=== PATIENT | male | born 1955 | race Caucasian/White ===

== ENCOUNTER 2020-01-05 13:12 | Emergency (ER) | payer BC, OTHER ==
[~2020-01-05] VITALS: Ht 182 cm; Wt 90.7 kg
[2020-01-05] MEDS ORDERED: LABETALOL HCL 20 MG/4 ML VIAL IV STA (13:24)
[2020-01-05 13:31] LABS: BASOPHILS % (AUTO) 0 % (0-10); EOSINOPHILS # (AUTO) 0.1 10^3/uL (0.0-0.3); EOSINOPHILS % (AUTO) 2 % (0-10); HEMATOCRIT 47 % (40-54); HEMOGLOBIN 15.4 G/DL (13.3-17.7); LYMPHOCYTES # (AUTO) 1.9 X 10^3 (1.0-4.0); LYMPHOCYTES % (AUTO) 23 % (12-44); MEAN CORPUSCULAR HEMOGLOBIN 28 PG (25-34); MEAN CORPUSCULAR HGB CONC 33 G/DL (32-36); MEAN CORPUSCULAR VOLUME 83 FL (80-99); MEAN PLATELET VOLUME 10.4 FL (7.4-10.4); MONOCYTES # (AUTO) 0.5 X 10^3 (0.0-1.0); MONOCYTES % (AUTO) 6 % (0-12); NEUTROPHILS # (AUTO) 5.6 X 10^3 (1.8-7.8); NEUTROPHILS % (AUTO) 69 % (42-75); PLATELET COUNT 200 10^3/uL (130-400); RED CELL DISTRIBUTION WIDTH 13.4 % (10.0-14.5); WHITE BLOOD COUNT 8.1 10^3/uL (4.3-11.0)
--- NOTE | 2020-01-05 13:39 | Diagnostic Imaging Report ---
PATIENT HISTORY: Altered mental status. TECHNIQUE: Single frontal view of the chest. COMPARISON: None FINDINGS: The lung volumes are normal. There is mild elevation of the left hemidiaphragm. No focal consolidation is seen. No large pleural effusion or pneumothorax is seen. The cardiomediastinal silhouette is normal in size and contour. No acute osseous abnormality is seen. IMPRESSION: No acute pulmonary abnormality seen. Dictated by: Dictated on workstation # [id number]
--- NOTE | 2020-01-05 13:45 | Diagnostic Imaging Report ---
CLINICAL INDICATION: Patient with altered mental status, memory loss, couldn't remember his name or who he was. Patient has history of right eye and right side of brain injury and surgery due to homemade massey going off in right eye. EXAM: Axial CT scan of the brain without IV contrast with coronal and sagittal reformatted images. Auto Exposure Controls were utilized during the CT exam to meet ALARA standards for radiation dose reduction. COMPARISON: None. FINDINGS: There is no gross evidence of intracranial hemorrhage, acute cerebral infarct, brain herniation, or midline shift. There is a moderate sized area of chronic encephalomalacia involving the right temporal lobe, right subinsular region, posterior right frontal lobe, right parietal lobe, and right frontal region which may be from post traumatic changes and/or infarcts. There are other small patchy areas of low-attenuation white matter changes involving the right cerebellum and right cerebral hemispheres, most likely related to chronic ischemic changes. There is no brain herniation or midline shift. There is no hydrocephalus. Asymmetry of extra-axial CSF in the left posterior fossa compared to the right, likely a chronic finding. A small arachnoid cyst may be considered. Basal cisterns are otherwise unremarkable. The extracranial soft tissues, skull, and orbits show no acute finding. Right lateral skull craniotomy changes are seen with a prosthetic skull flap seen. Prosthesis of the right globe is noted. There are bony reconstructive changes involving the right orbit. The paranasal sinuses and mastoid air cells are clear. IMPRESSION: 1. There is no definite CT evidence of interval acute cerebral infarction, intracranial hemorrhage, or mass seen. 2. There is a moderate amount of right cerebral hemisphere encephalomalacia, as described above. This may be related to post traumatic changes and/or chronic infarcts. 3. There are postop changes and deformity of the right orbit and right skull craniotomy with a prosthetic flap in place. 4. The results of this report were discussed with Dr. Jules Bhat via the telephone on 01/05/2020 at 1340 hours. Dictated by: Dictated on workstation # [id number]
[2020-01-05] MEDS ORDERED: NS IV 500 ML 500 ML IV ONE (13:46)
[2020-01-05 13:47] LABS: ALBUMIN 4.5 GM/DL (3.2-4.5); CHLORIDE 104 MMOL/L (98-107); POTASSIUM 3.8 MMOL/L (3.6-5.0); SODIUM 139 MMOL/L (135-145)
[2020-01-05 13:48] LABS: CALCIUM 9.1 MG/DL (8.5-10.1)
[2020-01-05 13:49] LABS: GLUCOSE 117 MG/DL (70-105)
[2020-01-05 13:50] LABS: TOTAL PROTEIN 8.2 GM/DL (6.4-8.2)
[2020-01-05 13:51] LABS: BILIRUBIN,TOTAL 0.4 MG/DL (0.1-1.0); CARBON DIOXIDE 24 MMOL/L (21-32)
[2020-01-05 13:52] LABS: FIBRIN DEGRADATION PRODUCTS 0.45 UG/ML (0.00-0.49); INR 0.9 (0.8-1.4); PROTHROMBIN TIME PATIENT 12.6 SEC (12.2-14.7)
[2020-01-05 13:53] LABS: ALKALINE PHOSPHATASE 104 U/L (40-136); CREATININE SERUM 1.01 MG/DL (0.60-1.30); GFR ESTIMATED > 60
--- NOTE | 2020-01-05 13:53 | ED Neurological Problem ---
General Chief Complaint: Neuro-Stroke Like Symptoms Stated Complaint: MEMORY LOSS,AMS Nursing Triage Note: ARRIVED VIA AMB TO ROOM 02. FAMILY IN WAITING ROOM STATES APPX 30 MINS TESTER REGULATOR PT SUDDENLY DID NOT KNOW HIS NAME OR WHERE HE IS AT. PT A/0X2 AT THIS TIME ET NOT KNOWING THE DATE. PT STATES HE STILL DOES NOT FEEL RIGHT IN HIS HEAD AND IS HAVING RIGHT ARM NUMBESS. Nursing Sepsis Screen: No Definite Risk Source: patient Exam Limitations: no limitations History of Present Illness Date Seen by Provider: January 05, 2020 Time Seen by Provider: 13:15 Initial Comments Here with report of feeling spacey. Also reported some right arm numbness. Started approximately 45 minutes ago. States he was at work and was on his lunch break when he started feeling this way. He drove home and his brought him here. 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 He takes Tegretol daily but has not had that in 2 days because he forgot. He has not had a seizure in many years. Denies hypertension but was noted to be hypertensive at 200 systolic. He feels like he can move everything and has sensation everywhere now but still feels a little spacey. Denies nausea, vomiting, chest pain or breathing problems. Does smoke daily and uses marijuana every other day. Timing/Duration: 1 hour Severity: moderate Associated Symptoms: confusion; No muscle spasms, No nausea/vomiting; paresthesia; No slurred speech, No trouble walking, No weakness Allergies and Home Medications Allergies Coded Allergies: Penicillins (Verified Allergy, Unknown, 01/05/20) Patient Home Medication List Home Medication List Reviewed: Yes Review of Systems Review of Systems Constitutional: see HPI; No chills, No fever Eyes: See HPI, Blindness (chronic); Denies Pain Ears, Nose, Mouth, Throat: no symptoms reported Respiratory: No cough, No short of breath Cardiovascular: see HPI; No chest pain, No edema Gastrointestinal: No abdominal pain, No nausea, No vomiting Genitourinary: no symptoms reported Musculoskeletal: no symptoms reported Skin: no symptoms reported Psychiatric/Neurological: See HPI All Other Systems Reviewed Negative Unless Noted: Yes Past Byyeqop-Imkgdb-Lvtiyy Hx Past Med/Social Hx: Reviewed Nursing Past Med/Soc Hx Patient Social History Alcohol Use: Denies Use Recreational Drug Use: Yes Drug of Choice: POT Smoking Status: Current Everyday Smoker Recent Foreign Travel: No Contact w/Someone Who Travel: No Recent Infectious Disease Expo: No Recent Hopitalizations: No Seasonal Allergies Seasonal Allergies: No Past Medical History Surgeries: Yes (EYE, cranial surgery) Respiratory: No Cardiac: Yes High Cholesterol, Hypertension Neurological: Yes Seizure Disorder Genitourinary: No Gastrointestinal: No Musculoskeletal: No Endocrine: No HEENT: Yes Eye Injury Loss of Vision: Right Cancer: No Psychosocial: No Family Medical History Reviewed Nursing Family Hx No Pertinent Family Hx Physical Exam Vital Signs Vital Signs - First Documented 01/05/20 13:12 Temp 37.0 Pulse 94 Resp 16 B/P (MAP) 206/106 (139) Pulse Ox 100 O2 Delivery Room Air Capillary Refill : Less Than 3 Seconds Height, Weight, BMI Height: '" Weight: lbs. oz. kg; 27.00 BMI Method: General Appearance: WD/WN, no apparent distress HEENT: pharynx normal, other (left side reactive. Right side is glass eye. Normal pharynx) Neck: non-tender, full range of motion, supple, normal inspection Respiratory: lungs clear, normal breath sounds Cardiovascular: regular rate, rhythm, no murmur Peripheral Pulses: 2+ Dorsalis Pedis (R), 2+ Left Dors-Pedis (L), 2+ Radial Pulses (R), 2+ Radial Pulses (L) Gastrointestinal: non tender, soft Back: normal inspection, no CVA tenderness, no vertebral tenderness Extremities: non-tender, normal inspection Neurologic/Psychiatric: alert, oriented x 3 Crainal Nerves: normal hearing, normal speech Coordination/Gait: normal finger to nose Motor/Sensory: no motor deficit, no sensory deficit, no pronator drift Skin: normal color, warm/dry Stroke NIH Stroke Scale Assessment Level of Consciousness: 0=Alert (0), Level of Consciousness-Questions: 0=Answers both month/age (0), LOC Commands: 0=Performs both tasks (0), Visual Ragland: 0=No visual loss (0), Facial Movement (Facial Paresis): 0=Normal symmetrical mnt (0), Motor Function-Arms Right: 0=No drift (0), Motor Function-Arms Left: 0=No drift (0), Motor Function-Legs Right: 0=No drift (0), Motor Function-Legs Left: 0=No drift (0), Limb Ataxia: 0=Absent (0), Sensory: 0=Normal:no loss (0), Best Language: 0=No aphasia (0), Dysarthria: 0=Normal (0), Extinction & Inattention: 0=No abnormality (0), Total: Progress/Results/Core Measures Results/Orders Lab Results Laboratory Tests Test 01/05/20 13:18 01/05/20 13:20 01/05/20 14:55 Range/Units Glucometer 124 H 70-110 MG/DL White Blood Count 8.1 4.3-11.0 10^3/uL Red Blood Count 5.59 4.35-5.85 10^6/uL Hemoglobin 15.4 13.3-17.7 G/DL Hematocrit 47 40-54 % Mean Corpuscular Volume 83 80-99 FL Mean Corpuscular Hemoglobin 28 25-34 PG Mean Corpuscular Hemoglobin Concent 33 32-36 G/DL Red Cell Distribution Width 13.4 10.0-14.5 % Platelet Count 200 130-400 10^3/uL Mean Platelet Volume 10.4 7.4-10.4 FL Neutrophils (%) (Auto) 69 42-75 % Lymphocytes (%) (Auto) 23 12-44 % Monocytes (%) (Auto) 6 0-12 % Eosinophils (%) (Auto) 2 0-10 % Basophils (%) (Auto) 0 0-10 % Neutrophils # (Auto) 5.6 1.8-7.8 X 10^3 Lymphocytes # (Auto) 1.9 1.0-4.0 X 10^3 Monocytes # (Auto) 0.5 0.0-1.0 X 10^3 Eosinophils # (Auto) 0.1 0.0-0.3 10^3/uL Basophils # (Auto) 0.0 0.0-0.1 10^3/uL Prothrombin Time 12.6 12.2-14.7 SEC INR Comment 0.9 0.8-1.4 Activated Partial Thromboplast Time 31 24-35 SEC D-Dimer 0.45 0.00-0.49 UG/ML Sodium Level 139 135-145 MMOL/L Potassium Level 3.8 3.6-5.0 MMOL/L Chloride Level 104 98-107 MMOL/L Carbon Dioxide Level 24 21-32 MMOL/L Anion Gap 11 5-14 MMOL/L Blood Urea Nitrogen 14 7-18 MG/DL Creatinine 1.01 0.60-1.30 MG/DL Estimat Glomerular Filtration Rate > 60 BUN/Creatinine Ratio 14 Glucose Level 117 H 70-105 MG/DL Calcium Level 9.1 8.5-10.1 MG/DL Corrected Calcium 8.7 8.5-10.1 MG/DL Total Bilirubin 0.4 0.1-1.0 MG/DL Aspartate Amino Transf (AST/SGOT) 19 5-34 U/L Alanine Aminotransferase (ALT/SGPT) 20 0-55 U/L Alkaline Phosphatase 104 40-136 U/L Troponin I < 0.028 <0.028 NG/ML Total Protein 8.2 6.4-8.2 GM/DL Albumin 4.5 3.2-4.5 GM/DL Urine Color YELLOW Urine Clarity CLEAR Urine pH 5.5 5-9 Urine Specific [place] >=1.030 1.016-1.022 Urine Protein NEGATIVE NEGATIVE Urine Glucose (UA) NEGATIVE NEGATIVE Urine Ketones NEGATIVE NEGATIVE Urine Nitrite NEGATIVE NEGATIVE Urine Bilirubin NEGATIVE NEGATIVE Urine Urobilinogen 0.2 < = 1.0 MG/DL Urine Leukocyte Esterase NEGATIVE NEGATIVE Urine RBC (Auto) NEGATIVE NEGATIVE Urine RBC NONE /HPF Urine WBC RARE /HPF Urine Squamous Epithelial Cells RARE /HPF Urine Crystals NONE /LPF Urine Bacteria TRACE /HPF Urine Casts PRESENT /LPF Urine Hyaline Casts RARE /LPF Urine Mucus MODERATE H /LPF Urine Culture Indicated NO My Orders Orders - JULES LOPEZ MD Cbc With Automated Diff (01/05/20 13:24) Protime With Inr (01/05/20 13:24) Partial Thromboplastin Time (01/05/20 13:24) Comprehensive Metabolic Panel (01/05/20 13:24) Fibrin Degradation Products (01/05/20 13:24) Troponin I (01/05/20 13:24) Ua Culture If Indicated (01/05/20 13:24) Chest 1 View, Ap/Pa Only (01/05/20 13:24) Ekg Tracing (01/05/20 13:24) Nothing By Mouth (01/05/20 Dinner) Accucheck Stat ONCE (01/05/20 13:24) Ed Iv/Invasive Line Start (01/05/20 13:24) Vital Signs Stroke Patient Q15M (01/05/20 13:24) O2 (01/05/20 13:24) Intake & Output 06,14,22 (01/05/20 13:24) Labetalol Injection (Normodyne Injection (01/05/20 13:24) Monitor-Rhythm Ecg Trace Only (01/05/20 13:24) Dysphagia Screening Tool (01/05/20 13:24) Lipid Panel (01/06/20 06:00) Ns Iv 500 Ml (Sodium Chloride 0.9%) (01/05/20 13:46) Metoprolol Succinate (Xl) Tab (Toprol Xl (01/05/20 15:00) Medications Given in ED Current Medications Medications Dose Ordered Sig/[place]asper Route Start Time Stop Time Status Last Admin Dose Admin Sodium Chloride 500 ml @ 0 mls/hr Q0M ONCE IV 01/05/20 13:46 01/05/20 13:47 DC 01/05/20 13:59 500 MLS/HR Vital Signs/I&O 01/05/20 13:12 Temp 37.0 Pulse 94 Resp 16 B/P (MAP) 206/106 (139) Pulse Ox 100 O2 Delivery Room Air Blood Pressure Mean: 139 FSBG Bedside Testing Finger Stick Blood Glucose: 124 Progress Progress Note : Progress Note Seen and evaluated. Stroke protocol initiated. Blood pressure noted to be greater than 200 systolic. Labetalol 20 mg IV initiated. 1354: Blood pressure slightly improved. CT negative for acute stroke. Pending labs. Normal saline 500 mL bolus. Monitor patient. 1511: Toprol-XL 50 mg by mouth ordered. Overall doing better and patient was able to walk to the bathroom without difficulty. He states he feels better. I believe this incident was related to hypertension. He is not very good at taking his meds. I did talk with the and she states that she will help make sure that he takes them appropriately. We will initiate metoprolol 25 mg by mouth twice a day and have him follow-up with his doctor within one week. I discussed this with the who states that she will ensure that he gets in. He will continue his home medicines as prescribed. Discharged home with return precautions. Patient verbalize understanding of instructions and agreement with plan. Initial ECG Impression Date: January 05, 2020 Initial ECG Impression Time: 13:35 Initial ECG Rate: 90 Initial ECG Rhythm: Normal Sinus Comment Sinus rhythm with left atrial abnormality. Normal axis. No evidence of ST elevation [place]. No previous of available for comparison. Interpreted by me. Diagnostic Imaging Diagonstic Imaging: Xray Plain Films/CT/US/NM/MRI: chest Comments [facility] [place] NAME: AISSATOU NAVARRO [facility] REC#: [id number] PT STATUS: REG ER : 1955 PHYSICIAN: JULES LOPEZ MD ADMIT DATE: 01/05/20/ER Draft Date of Exam:01/05/20 CHEST 1 VIEW, AP/PA ONLY PATIENT HISTORY: Altered mental status. TECHNIQUE: Single frontal view of the chest. COMPARISON: None FINDINGS: The lung volumes are normal. There is mild elevation of the left hemidiaphragm. No focal consolidation is seen. No large pleural effusion or pneumothorax is seen. The cardiomediastinal silhouette is normal in size and contour. No acute osseous abnormality is seen. IMPRESSION: No acute pulmonary abnormality seen. Dictated on workstation # [id number] Dict: 01/05/20 1336 Trans: 01/05/20 1339 CV [id number] Interpreted by: MANNY JALLOH MD Electronically signed by: Diagonstic Imaging: CT Plain Films/CT/US/NM/MRI: head Comments [facility] [place] NAME: AISSATOU NAVARRO [facility] REC#: [id number] PT STATUS: REG ER : 1955 PHYSICIAN: ROSA MARIA RAI APRN ADMIT DATE: 01/05/20/ER Draft Date of Exam:01/05/20 CT HEAD WO-R/O STROKE CLINICAL INDICATION: Patient with altered mental status, memory loss, couldn't remember his name or who he was. Patient has history of right eye and right side of brain injury and surgery due to homemade massey going off in right eye. EXAM: Axial CT scan of the brain without IV contrast with coronal and sagittal reformatted images. Auto Exposure Controls were utilized during the CT exam to meet ALARA standards for radiation dose reduction. COMPARISON: None. FINDINGS: There is no gross evidence of intracranial hemorrhage, acute cerebral infarct, brain herniation, or midline shift. There is a moderate sized area of chronic encephalomalacia involving the right temporal lobe, right subinsular region, posterior right frontal lobe, right parietal lobe, and right frontal region which may be from post traumatic changes and/or infarcts. There are other small patchy areas of low-attenuation white matter changes involving the right cerebellum and right cerebral hemispheres, most likely related to chronic ischemic changes. There is no brain herniation or midline shift. There is no hydrocephalus. Asymmetry of extra-axial CSF in the left posterior fossa compared to the right, likely a chronic finding. A small arachnoid cyst may be considered. Basal cisterns are otherwise unremarkable. The extracranial soft tissues, skull, and orbits show no acute finding. Right lateral skull craniotomy changes are seen with a prosthetic skull flap seen. Prosthesis of the right globe is noted. There are bony reconstructive changes involving the right orbit. The paranasal sinuses and mastoid air cells are clear. IMPRESSION: 1. There is no definite CT evidence of interval acute cerebral infarction, intracranial hemorrhage, or mass seen. 2. There is a moderate amount of right cerebral hemisphere encephalomalacia, as described above. This may be related to post traumatic changes and/or chronic infarcts. 3. There are postop changes and deformity of the right orbit and right skull craniotomy with a prosthetic flap in place. 4. The results of this report were discussed with Dr. Jules Lopez via the telephone on 01/05/2020 at 1340 hours. Dictated on workstation # [id number] Dict: 01/05/20 1331 Trans: 01/05/20 1345 [id number] Interpreted by: WELLINGTON BENAVIDEZ MD Electronically signed by: Reviewed: Discussed w/Radiologist, Reviewed/Discussed Departure Impression Primary Impression: Hypertensive urgency, malignant Disposition: 01 HOME, SELF-CARE Condition: Improved Departure-Patient Inst. Decision time for Depature: 15:13 Referrals: NO,LOCAL PHYSICIAN (Family) Primary Care Physician Patient Instructions: Malignant Hypertension (DC) Add. Discharge Instructions: All discharge instructions reviewed with patient and/or family. Voiced understanding. Take medications as directed. Follow-up with your doctor within one week for recheck and further evaluation. Monitor your blood pressure daily and record. Start new medication tomorrow morning and he will take it twice daily. Make sure you are taking your own medications as prescribed. Return for worse pain, fever, vomiting, weakness, breathing problems or other concerns as needed. Scripts Metoprolol Tartrate (Metoprolol Tartrate) 25 Mg Tablet 25 MG PO BID, #60 TAB 0 Refills Prov: JULES LOPEZ MD 01/05/20 Copy Copies To 1: OLE HOWARD TIMOTHY D MD January 05, 2020 13:53
[2020-01-05 13:54] LABS: BUN/CREATININE RATIO 14
[2020-01-05 13:56] LABS: ALANINE AMINOTRANSFERASE 20 U/L (0-55)
--- NOTE | 2020-01-05 14:20 | NUR ---
NOTIFIED PT AGAIN WE NEEDED A URINE SAMPLE.
--- NOTE | 2020-01-05 14:40 | NUR ---
IN TALKING TO PT AT THIS TIME.
--- NOTE | 2020-01-05 14:53 | NUR ---
UP TO BATHROOM.
[2020-01-05 14:58] LABS: BILIRUBIN,URINE NEGATIVE (NEGATIVE); CLARITY,URINE CLEAR; COLOR,URINE YELLOW; GLUCOSE, URINE (UA) NEGATIVE (NEGATIVE); KETONES,URINE NEGATIVE (NEGATIVE); LEUKOCYTE ESTERASE ,URINE NEGATIVE (NEGATIVE); NITRITE,URINE NEGATIVE (NEGATIVE); PH,URINE 5.5 (5-9); PROTEIN,URINE NEGATIVE (NEGATIVE)
[2020-01-05] MEDS ORDERED: meTOproloL SUCCINATE 50 MG (TOPROL XL) TAB PO SCH (15:00)
--- NOTE | 2020-01-05 15:08 | NUR ---
DR LOPEZ TALKING TO PT'S ON THE PHONE AT THIS TIME.
[2020-01-05 15:09] LABS: BACTERIA,URINE TRACE /HPF; HYALINE CASTS, URINE RARE /LPF; SQUAMOUS EPITHELIAL CELL,UR RARE /HPF; WBC,URINE RARE /HPF
[2020-01-05] MEDS ORDERED: METO-333 PO (15:15)
[2020-01-05 15:22] VITALS: BP 150/84
--- OUTSIDE RECORDS SUMMARY | 2020-01-05 16:14 | XMS REPORT ---
Author Author Francis LIVINGSTON Organization [facility] Address [address] [place] [address] Care Team Providers Care Shirt Bander Name Role Phone KEILY LIVINGSTON Unavailable PROBLEMS Type Condition ICD9-CM Code PUG25-UX Code Onset Dates Condition S tatus SNOMED Code Problem Cigarette nicotine dependence without complication F17.210 Active 20980834 Problem Anxiety F41.9 Active 32445701 Problem Seizure disorder G40.909 Active 128 399914 Problem Hypertension I10 Active 3948293 3 Problem Mixed hyperlipidemia E78.2 Active 985346810 ALLERGIES No Information ENCOUNTERS Encounter Location Date Diagnosis [place] [address] [place] [id number] [place] [phone] Mar, [place] [address] [place] [id number] [place] [phone] Feb, Hypertension I10 ; Anxiety F 41.9 and Cigarette nicotine dependence without complication F17.210 [place] [address] [place] [id number] [place] [id number] 13 Jan, 2019 Mixed hyperlipidemia E78.2 a nd Routine adult health maintenance Z00.00 [place] [address] [place] [id number] [place] [phone] Jan, Hypertension I10 [place] [address] [facility] [id number] [address] [place] [phone] Jan, Seizure disorder G40.909 and Hypertension I10 [place] [address] [facility] [id number] [address] [place] [address] Jan, Seizure disorder G40.909 [place] [address] [facility] [id number] [address] [place] [phone] Mar, Hypertension I10 ; Seizure d isorder G40.909 ; Encounter to establish care Z76.89 and Screening cholesterol level Z13.220 [facility] [address] [id number] [address] [place] [id number] Jul, Hypertension I10 and Seizure disorder G40.909 [facility] [address] [id number] [address] [place] [phone] Nov, [facility] [address] [id number] [address] [place] [id number] Nov, [facility] [address] [id number] [address] [place] [phone] Aug, [facility] [address] [id number] [address] [place] [phone] Aug, [facility] [address] [id number] [address] [place] [phone] Aug, [facility] [address] [id number] [address] [place] [phone] Aug, [facility] [address] [id number] [address] [place] [phone] Apr, [facility] [address] [id number] [address] [place] [phone] Apr, [facility] [address] [id number] [address] [place] [phone] Nov, [facility] [address] [id number] [address] [place] [phone] December, [facility] [address] [id number] [address] [place] [phone] December, [facility] [address] [id number] [address] [place] [phone] December, [facility] [address] [id number] [address] [place] [phone] Jun, [facility] [address] [id number] [address] [place] [phone] Jun, [facility] [address] [facility] [id number] [address] [place] [phone] Jun, [facility] [address] [facility] [id number] [address] [place] [phone] Jun, [facility] [address] [facility] [id number] [address] [place] [phone] Feb, [facility] [address] [facility] [id number] [address] [place] [id number] May, [facility] [address] [facility] [id number] [address] [place] [phone] May, [facility] [address] [facility] [id number] [address] [place] [phone] December, IMMUNIZATIONS No Known Immunizations SOCIAL HISTORY Never Assessed REASON FOR VISIT PLAN OF CARE VITAL SIGNS MEDICATIONS Unknown Medications RESULTS No Results PROCEDURES No Known procedures INSTRUCTIONS MEDICATIONS ADMINISTERED No Known Medications MEDICAL (GENERAL) HISTORY Type Description Date Medical History htn Medical History seizures Surgical History Surgery on PT right side of skull due to trauma 1995 Surgical History Hernia repair 1993
--- OUTSIDE RECORDS SUMMARY | 2020-01-05 16:14 | XMS REPORT ---
Author Author Francis LIVINGSTON Organization [employer] Address Unknown Phone Unavailable Care Team Providers Care Java Software Developer Name Role Phone KEILY LIVINGSTON CP Unavailable Allergies, Adverse Reactions, Alerts Substance Reaction Event Type Penicillamine hives Drug Allergy Problems Problem Type Condition Code Onset Dates Condition Statu s Problem Seizure disorder G40.909 Active Assessment Hypertension I10 Active Problem Hypertension I10 Active Assessment Seizure disorder G40.909 Active Medications Medication Code System Code Instructions Start Date End Date Status Dosage Lisinopril-Hydrochlorothiazide [facility] [address]-00 10-12.5 MG Aug take 1 tablet by Oral route 1 time per day Carbamazepine [facility] [address]-88 200 MG Twice a day TAKE ONE TABLET BY MOUTH TWICE DAILY Procedures Procedure Coding System Code Date VENIPUNCT, ROUTINE* CPT-4 64883 Aug 08, 2015 Office Visit, Est Pt., Level 4 CPT-4 85905 D 2014 COMPREHEN METABOLIC PANEL CPT-4 43819 Jul Vital Signs Date/Time: Aug 08, 2015 Temperature 98.0 F Weight 217.2 lbs Height 73 in BMI 28.65 Index Blood Pressure Diastolic 98 mmHg Blood Pressure Systolic 178 mmHg Cardiac Monitoring Heart Rate 88 bpm Results Name Result Date Reference Range Unit Abnormali ty Flag ROUTINE VENIPUNCTURE Summary Purpose [employer] Submission
--- OUTSIDE RECORDS SUMMARY | 2020-01-05 16:14 | XMS REPORT ---
Author Author Francis Spaulding Doctor Organization [facility] Address Unknown Phone Unavailable Care Team Providers Care Tire Room Supervisor Name Role Phone Migration, Doctor Unavailable Unavailable PROBLEMS Type Condition ICD9-CM Code OTR78-OC Code Onset Dates Condition S tatus SNOMED Code Problem Seizure disorder G40.909 Active 128 635125 Problem Hypertension I10 Active 3930573 3 ALLERGIES No Information ENCOUNTERS Encounter Location Date Diagnosis [facility] [address] [facility] [id number] [address] [place] [address] Jan, Seizure disorder G40.909 [facility] [address] [facility] [id number] [address] [place] [address] Mar, Hypertension I10 ; Seizure d isorder G40.909 ; Encounter to establish care Z76.89 and Screening cholesterol level Z13.220 [facility] [address] [facility] [id number] [address] [place] [address] Jul, Hypertension I10 and Seizure disorder G40.909 [facility] [address] [facility] [id number] [address] [place] [address] Nov, [facility] [address] [facility] [id number] [address] [place] [address] Nov, [facility] [address] [facility] [id number] [address] [place] [address] Aug, [facility] [address] [facility] [id number] [address] [place] [phone] Aug, [facility] [address] [facility] [id number] [address] [place] [address] Aug, [facility] [address] [facility] [id number] [address] [place] [address] Aug, [facility] [address] [id number] [address] [place] [address] Apr, [facility] [address] [id number] [address] [place] [address] Apr, [facility] [address] [id number] [address] [place] [address] Nov, [facility] [address] [id number] [address] [place] [address] December, [facility] [address] [id number] [address] [place] [address] December, [facility] [address] [id number] [address] [place] [address] December, [facility] [address] [id number] [address] [place] [address] Jun, [facility] [address] [id number] [address] [place] [address] Jun, [facility] [address] [id number] [address] [place] [address] Jun, [facility] [address] [id number] [address] [place] [address] Jun, [facility] [address] [id number] [address] [place] [address] Feb, [facility] [address] [id number] [address] [place] [address] May, [facility] [address] [id number] [address] [place] [address] May, [facility] [address] [id number] [address] [place] [address] December, IMMUNIZATIONS No Known Immunizations SOCIAL HISTORY Never Assessed REASON FOR VISIT EMR-[facility] PLAN OF CARE VITAL SIGNS MEDICATIONS Unknown Medications RESULTS No Results PROCEDURES No Known procedures INSTRUCTIONS MEDICATIONS ADMINISTERED No Known Medications MEDICAL (GENERAL) HISTORY Type Description Date Medical History htn Medical History seizures Surgical History Surgery on PT right side of skull due to trauma 1995 Surgical History Hernia repair 1993
--- OUTSIDE RECORDS SUMMARY | 2020-01-05 16:14 | XMS REPORT ---
Author Author Francis Spaulding Doctor Organization [facility] Address Unknown Phone Unavailable Care Team Providers Care Teasel Gig Operator Name Role Phone Migration, Doctor Unavailable Unavailable PROBLEMS Type Condition ICD9-CM Code NLA76-HC Code Onset Dates Condition S tatus SNOMED Code Problem Seizure disorder G40.909 Active 128 735769 Problem Hypertension I10 Active 5619490 3 ALLERGIES No Information ENCOUNTERS Encounter Location Date Diagnosis [facility] [address] [facility] [id number] [address] [place] [address] Jan, Seizure disorder G40.909 [facility] [address] [facility] [id number] [address] [place] [phone] Mar, Hypertension I10 ; Seizure d isorder G40.909 ; Encounter to establish care Z76.89 and Screening cholesterol level Z13.220 [facility] [address] [facility] [id number] [address] [place] [address] Jul, Hypertension I10 and Seizure disorder G40.909 [facility] [address] [facility] [id number] [address] [place] [phone] Nov, [facility] [address] [facility] [id number] [address] [place] [address] Nov, [facility] [address] [facility] [id number] [address] [place] [address] Aug, [facility] [address] [facility] [id number] [address] [place] [address] Aug, [facility] [address] [facility] [id number] [address] [place] [address] Aug, [facility] [address] [facility] [id number] [address] [place] [address] Aug, [facility] [address] [id number] [address] [place] [address] Apr, [facility] [address] [id number] [address] [place] [address] Apr, [facility] [address] [id number] [address] [place] [phone] Nov, [facility] [address] [id number] [address] [place] [phone] December, [facility] [address] [id number] [address] [place] [phone] December, [facility] [address] [id number] [address] [place] [address] December, [facility] [address] [id number] [address] [place] [phone] Jun, [facility] [address] [id number] [address] [place] [phone] Jun, [facility] [address] [id number] [address] [place] [phone] Jun, [facility] [address] [id number] [address] [place] [phone] Jun, [facility] [address] [id number] [address] [place] [phone] Feb, [facility] [address] [id number] [address] [place] [address] May, [facility] [address] [id number] [address] [place] [address] May, [facility] [address] [id number] [address] [place] [phone] December, IMMUNIZATIONS No Known Immunizations SOCIAL HISTORY Never Assessed REASON FOR VISIT [facility] [place] PLAN OF CARE VITAL SIGNS MEDICATIONS Unknown Medications RESULTS No Results PROCEDURES No Known procedures INSTRUCTIONS MEDICATIONS ADMINISTERED No Known Medications MEDICAL (GENERAL) HISTORY Type Description Date Medical History htn Medical History seizures Surgical History Surgery on PT right side of skull due to trauma 1995 Surgical History Hernia repair 1993
--- OUTSIDE RECORDS SUMMARY | 2020-01-05 16:14 | XMS REPORT | Continuity of Care Document ---
Author Organization Unknown Address Unknown Phone Unavailable Allergies Active Description Code Type Severity Reaction Onset Reported/Identified Relationship to Patient Clinical Status Yes Penicillins Drug Allergy 09/27/2008 Yes Penicillins Drug Allergy N/A N/A 09/27/2008 Medications There is no data. Problems Date Dx Coded Attending Type Code Diagnosis Diagnosed By 07/20/2008 KEILY LIVINGSTON MD 401.1 HYPERTENSION, BENIGN ESSENTIAL 07/20/2008 401.1 HYPE RTENSION, BENIGN ESSENTIAL 07/20/2008 KEILY LIVINGSTON MD 401.1 HYPERTENSION, BENIGN ESSENTIAL 09/27/2008 KEILY LIVINGSTON MD V70.0 GENERAL MEDICAL EXAM, ROUTINE, AT HEALTH CARE FACILITY 09/27/2008 V70.0 GENE RAL MEDICAL EXAM, ROUTINE, AT HEALTH CARE FACILITY 09/27/2008 KEILY LIVINGSTON MD V70.0 GENERAL MEDICAL EXAM, ROUTINE, AT HEALTH CARE FACILITY 10/27/2009 KEILY LIVINGSTON MD 272.4 DYSLIPIDEMIA 10/27/2009 KEILY LIVINGSTON MD 345.9 RECURRENT SEIZURES 10/27/2009 KEILY LIVINGSTON MD 600.0 0 BENIGN PROSTATIC HYPERTROPHY 10/27/2009 272.4 DYSL IPIDEMIA 10/27/2009 345.9 RECU RRENT SEIZURES 10/27/2009 600.00 ANNETTA IGN PROSTATIC HYPERTROPHY 10/27/2009 KEILY LIVINGSTON MD 272.4 DYSLIPIDEMIA 10/27/2009 KEILY LIVINGSTON MD 345.9 RECURRENT SEIZURES 10/27/2009 KEILY LIVINGSTON MD 600.0 0 BENIGN PROSTATIC HYPERTROPHY 01/11/2011 KEILY LIVINGSTON MD 780.3 9 OTHER CONVULSIONS 01/11/2011 780.39 OTH ER CONVULSIONS 01/11/2011 KEILY LIVINGSTON MD 780.3 9 OTHER CONVULSIONS Procedures Code Description [place] [address] ROUT INE VENIPUNCTURE 07/21/2012 62653 CMP 07/21/2012 57629 LIPI D PANEL 07/21/20126863903 GF R CALC (RESULT ONLY) 07/21/2012 27555 TEGR ETOL / CARBAMAZIPINE 07/22/2012 Results Test Result Range LIPID PANEL - 01/30/19 08:15 CHOLESTEROL, TOTAL 221 mg/dL <200 HDL CHOLESTEROL 45 mg/dL >40 TRIGLYCERIDES 137 mg/dL <150 LDL-CHOLESTEROL 150 mg/dL (calc) NRG CHOL/HDLC RATIO 4.9 (calc) <5.0 NON HDL CHOLESTEROL 176 mg/dL (calc) <13 0 CMP - 01/30/19 08:15 GLUCOSE 105 mg/dL 65-99 UREA NITROGEN (BUN) 14 mg/dL 7-25 CREATININE 0.86 mg/dL 0.70-1.25 eGFR NON-AFR. MALAWIAN 92 mL/min/1.73m2 > OR = 60 eGFR 107 mL/min/1.73m2 > OR = 60 BUN/CREATININE RATIO NOT APPLICABLE (calc) 6-22 SODIUM 139 mmol/L 135-146 POTASSIUM 4.5 mmol/L 3.5-5.3 CHLORIDE 106 mmol/L 98-110 CARBON DIOXIDE 28 mmol/L 20-32 CALCIUM 9.3 mg/dL 8.6-10.3 PROTEIN, TOTAL 6.8 g/dL 6.1-8.1 ALBUMIN 4.3 g/dL 3.6-5.1 GLOBULIN 2.5 g/dL (calc) 1.9-3.7 ALBUMIN/GLOBULIN RATIO 1.7 (calc) 1.0-2. 5 BILIRUBIN, TOTAL 0.7 mg/dL 0.2-1.2 ALKALINE PHOSPHATASE 83 U/L 40-115 AST 15 U/L 10-35 ALT 17 U/L 9-46 Capillary blood glucose measurement by g lucometer (mass/volume) - 01/05/20 13:18 Capillary blood glucose measurement by glucometer (mas s/volume) 124 mg/dL 70-110 Complete blood count (CBC) with automate d white blood cell (WBC) differential - 01/05/20 13:20 Blood leukocytes automated count (number/volume) 8.1 10*3/uL 4.3-11.0 Blood erythrocytes automated count (number/volume) 5.59 10*6/uL 4.35-5.85 Venous blood hemoglobin measurement (mass/volume) 15.4 g/dL 13.3-17.7 Blood hematocrit (volume fraction) 47 % 40-54 Automated erythrocyte mean corpuscular volume 83 [ foz_us] 80-99 Automated erythrocyte mean corpuscular h emoglobin (mass per erythrocyte) 28 pg 25-34 Automated erythrocyte mean corpuscular h emoglobin concentration measurement (mass/volume) 33 g/dL 32-36 Automated erythrocyte distribution width ratio 13. 4 % 10.0- 14.5 Automated blood platelet count (count/volume) 200 10*3/uL 130-400 Automated blood platelet mean volume measurement 10.4 [foz_us] 7.4-10.4 Automated blood neutrophils/100 leukocytes 69 % 42-75 Automated blood lymphocytes/100 leukocytes 23 % 12-44 Blood monocytes/100 leukocytes 6 % 0-12 Automated blood eosinophils/100 leukocytes 2 % 0-10 Automated blood basophils/100 leukocytes 0 % 0-10 Blood neutrophils automated count (number/volume) 5.6 10*3 1.8-7.8 Blood lymphocytes automated count (number/volume) 1.9 10*3 1.0-4.0 Blood monocytes automated count (number/volume) 0. 5 10*3 0.0-1.0 Automated eosinophil count 0.1 10*3/uL 0 .0-0.3 Automated blood basophil count (count/volume) 0.0 10*3/uL 0.0-0.1 Comprehensive metabolic panel - 01/05/20 13:20 Serum or plasma sodium measurement (moles/volume) 139 mmol/L 135-145 Serum or plasma potassium measurement (moles/volume) 3.8 mmol/L 3.6-5.0 Serum or plasma chloride measurement (moles/volume) 104 mmol/L 98-107 Carbon dioxide 24 mmol/L 21-32 Serum or plasma anion gap determination (moles/volume) 11 mmol/L 5-14 Serum or plasma urea nitrogen measurement (mass/volume ) 14 mg/dL 7-18 Serum or plasma creatinine measurement (mass/volume) 1.01 mg/dL 0.60-1.30 Serum or plasma urea nitrogen/creatinine mass ratio 14 NRG Serum or plasma creatinine measurement w ith calculation of estimated glomerular filtration rate > NRG Serum or plasma glucose measurement (mass/volume) 117 mg/dL 70-105 Serum or plasma calcium measurement (mass/volume) 9.1 mg/dL 8.5-10.1 Serum or plasma total bilirubin measurement (mass/volu me) 0.4 mg/dL 0.1-1.0 Serum or plasma alkaline phosphatase lauren surement (enzymatic activity/volume) 104 U/L 40-136 Serum or plasma aspartate aminotransfera se measurement (enzymatic activity/volume) 19 U/L 5-34 Serum or plasma alanine aminotransferase measurement (enzymatic activity/volume) 20 U/L 0-55 Serum or plasma protein measurement (mass/volume) 8.2 g/dL 6.4-8.2 Serum or plasma albumin measurement (mass/volume) 4.5 g/dL 3.2-4.5 CALCIUM CORRECTED 8.7 mg/dL 8.5-10.1 PT panel in platelet poor plasma by coag ulation assay - 01/05/20 13:20 Prothrombin time (PT) in platelet poor plasma by coagu lation assay 12.6 s 12.2-14.7 INR in platelet poor plasma or blood by coagulation as say 0.9 0.8-1.4 Activated partial thromboplastin time (a PTT) in platelet poor plasma bycoagulation assay - 01/05/20 13:20 Activated partial thromboplastin time (a PTT) in platelet poor plasma bycoagulation assay 31 s 24-35 Fibrin D-dimer FEU measurement in platel et poor plasma (mass/volume) - 01/05/20 13:20 Fibrin D-dimer FEU measurement in platelet poor plasma (mass/volume) 0.45 ug/mL 0.00-0.49 Serum or plasma troponin i.cardiac measu rement (mass/volume) - 01/05/20 13:20 Serum or plasma troponin i.cardiac measurement (mass/v olume) < ng/mL <0.028 Complete urinalysis with reflex to cultu re - 01/05/20 14:55 Urine color determination YELLOW NRG Urine clarity determination CLEAR NR G Urine pH measurement by test strip 5.5 5-9 Specific gravity of urine by test strip >= 1.016-1.022 Urine protein assay by test strip, semi-quantitative NEGATIVE NEGATIVE Urine glucose detection by automated test strip NE GATIVE NEGATIVE Erythrocytes detection in urine sediment by light micr oscopy NEGATIVE NEGATIVE Urine ketones detection by automated test strip NE GATIVE NEGATIVE Urine nitrite detection by test strip NEGATIVE NEGATIVE Urine total bilirubin detection by test strip NEGA TIVE NEGATIVE Urine urobilinogen measurement by automated test strip (mass/volume) 0.2 mg/dL < = 1.0 Urine leukocyte esterase detection by dipstick NEG ATIVE NEGATIVE Automated urine sediment erythrocyte cou nt by microscopy (number/high power field) NONE NRG Automated urine sediment leukocyte count by microscopy (number/high power field) RARE NRG Bacteria detection in urine sediment by light microsco py TRACE NRG Squamous epithelial cells detection in u rine sediment by light microscopy RARE NRG Crystals detection in urine sediment by light microsco py NONE NRG Casts detection in urine sediment by light microscopy PRESENT NRG Mucus detection in urine sediment by light microscopy MODERATE NRG Complete urinalysis with reflex to culture NO NRG Hyaline casts detection in urine sediment by light bruna roscopy RARE NRG Encounters ACCT No. Visit Date/Time Discharge Status Pt. Type Provider Facility Loc./Unit Complaint [id number] 01/06/2013 15:13:00 01/06/2013 23:59: 59 [place] [id number] 06/22/2011 15:15:00 06/22/2011 23:59:5 9 CLS Outpatient KEILY LIVINGSTON MD [id number] 07/21/2012 10:18:00 Document Registration [id number] 09/21/2014 11:05:00 015 23:59:59 CLS Outpatient SERGEI BARBOSA [facility] [id number] 01/05/2020 13:30:00 Document Registration [id number] 06/08/2019 14:20:00 06/08/2019 23:59:5 9 CLS Outpatient KEILY LIVINGSTON MD [facility] [id number] 01/30/2019 08:40:00 Document Registration
--- OUTSIDE RECORDS SUMMARY | 2020-01-05 16:14 | XMS REPORT ---
Author Author Francis LEOS Organization [facility] Address [address] [place] [address] Care Team Providers Care Silver Designer Name Role Phone MATEUS LEOS Unavailable PROBLEMS Type Condition ICD9-CM Code PTL36-YH Code Onset Dates Condition S tatus SNOMED Code Problem Hypertension I10 Active 4689805 3 Problem Mixed hyperlipidemia E78.2 Active 070025716 Problem Seizure disorder G40.909 Active 128 854041 ALLERGIES No Information ENCOUNTERS Encounter Location Date Diagnosis [place] [address] [phone] Feb, [place] [address] [address] Jan, Mixed hyperlipidemia E78.2 a nd Routine adult health maintenance Z00.00 [place] [address] [phone] Jan, Hypertension I10 [place] [address] [address] [place] [id number] [address] [place] [address] Jan, Seizure disorder G40.909 and Hypertension I10 [place] [address] [address] [place] [id number] [address] [place] [address] Jan, Seizure disorder G40.909 [place] [address] [address] [place] [id number] [address] [place] [address] Mar, Hypertension I10 ; Seizure d isorder G40.909 ; Encounter to establish care Z76.89 and Screening cholesterol level Z13.220 [place] [address] [address] [place] [id number] [address] [place] [address] 14 Jul, 2015 Hypertension I10 and Seizure disorder G40.909 [facility] [address] [id number] [address] [place] [address], [place] [address] 14 Nov, 2014 [facility] [address] [id number] [address] [place] [address], [place] [address] Nov, [facility] [address] [id number] [address] [place] [address], [place] [address] Aug, [facility] [address] [id number] [address] [place] [address], [place] [address] Aug, [facility] [address] [id number] [address] [place] [address], [place] [address] Aug, [facility] [address] [id number] [address] [place] [address], [place] [address] Aug, [facility] [address] [id number] [address] [place] [address], [place] [address] Apr, [facility] [address] [id number] [address] [place] [address], [place] [address] Apr, [facility] [address] [id number] [address] [place] [address], [place] [address] Nov, [facility] [address] [id number] [address] [place] [address], [place] [address] December, [facility] [address] [id number] [address] [place] [address], [place] [address] December, [facility] [address] [id number] [address] [place] [address], [place] [address] December, [facility] [address] [id number] [address] [place] [address], [place] [address] Jun, [facility] [address] [id number] [address] [place] [address], [place] [address] Jun, [facility] [address] [id number] [address] [place] [address], [place] [address] Jun, [facility] [address] [id number] [address] [place] [address] [address] Jun, [facility] [address] [facility] [id number] [address] [place] [address] Feb, [facility] [address] [facility] [id number] [address] [place] [address] May, [facility] [address] [facility] [id number] [address] [place] [address] May, [facility] [address] [facility] [id number] [address] [place] [address] December, IMMUNIZATIONS No Known Immunizations SOCIAL HISTORY [...]
--- OUTSIDE RECORDS SUMMARY | 2020-01-05 16:14 | XMS REPORT ---
Author Author Francis HOWARD Organization [facility] Address [address] [place] [address] Care Team Providers Care Unhairing Machine Operator Name Role Phone OLE HOWARD Unavailable PROBLEMS Type Condition ICD9-CM Code [id number] Code Onset Dates Condition S tatus SNOMED Code Problem Hypertension I10 Active 5296236 3 Problem Seizure disorder G40.909 Active 128 053936 ALLERGIES No Information ENCOUNTERS Encounter Location Date Diagnosis [facility] [address] [facility] [id number] [address] [place] [address] Jan, Seizure disorder G40.909 [facility] [address] [place] [id number] [address] [place] [address] Mar, Hypertension I10 ; Seizure d isorder G40.909 ; Encounter to establish care Z76.89 and Screening cholesterol level Z13.220 [facility] [address] [facility] [id number] [address] [place] [address] Jul, Hypertension I10 and Seizure disorder G40.909 [facility] [address] [facility] [id number] [address] [place] [address] Nov, [facility] [address] [facility] [id number] [address] [place] [address] Nov, [facility] [address] [facility] [id number] [address] [place] [address] Aug, [facility] [address] [facility] [id number] [address] [place] [address] Aug, [facility] [address] [facility] [id number] [address] [place] [address] Aug, [facility] [address] [place] [id number] [address] [place] [address] Aug, [facility] [address] [id number] [address] [place] [address] Apr, [facility] [address] [id number] [address] [place] [address] Apr, [facility] [address] [id number] [address] [place] [address] Nov, [facility] [address] [id number] [address] [place] [address] December, [facility] [address] [id number] [address] [place] [address] December, [facility] [address] [id number] [address] [place] [address] December, [facility] [address] [id number] [address] [place] [address] Jun, [facility] [address] [id number] [address] [place] [address] Jun, [facility] [address] [id number] [address] [place] [address] Jun, [facility] [address] [id number] [address] [place] [address] Jun, [facility] [address] [id number] [address] [place] [address] Feb, [facility] [address] [id number] [address] [place] [address] May, [facility] [address] [id number] [address] [place] [address] May, [facility] [address] [id number] [address] [place] [address] December, IMMUNIZATIONS No Known Immunizations SOCIAL HISTORY Never Assessed REASON FOR VISIT medication PLAN OF CARE VITAL SIGNS MEDICATIONS Medication Instructions Dosage Frequency Start Date End Date Duration S tatus Carbamazepine 200 mg TAKE ONE TABLET BY MOUTH TWICE DAILY 12h Active RESULTS No Results PROCEDURES No Known procedures INSTRUCTIONS MEDICATIONS ADMINISTERED No Known Medications MEDICAL (GENERAL) HISTORY Type Description Date Medical History htn Medical History seizures Surgical History Surgery on PT right side of skull due to trauma 1995 Surgical History Hernia repair 1993
--- OUTSIDE RECORDS SUMMARY | 2020-01-05 16:14 | XMS REPORT ---
Author Author Francis Spaulding Doctor Organization [facility] Address Unknown Phone Unavailable Care Team Providers Care Tape Fastener Machine Operator Name Role Phone Migration, Doctor Unavailable Unavailable PROBLEMS Type Condition ICD9-CM Code [id number] Code Onset Dates Condition S tatus SNOMED Code Problem Hypertension I10 Active 6316210 3 Problem Mixed hyperlipidemia E78.2 Active 808668778 Problem Seizure disorder G40.909 Active 128 511514 ALLERGIES No Information ENCOUNTERS Encounter Location Date Diagnosis [place] [address] [address] Feb, [place] [address] [address] Jan, Mixed hyperlipidemia E78.2 a nd Routine adult health maintenance Z00.00 [place] [address] [address] 07 Jan, 2019 Hypertension I10 [place] [address] [address] Jan, Seizure disorder G40.909 and Hypertension I10 [place] [address] [address] Jan, Seizure disorder G40.909 [place] [address] [place] [id number] [address] [place] [address] Mar, Hypertension I10 ; Seizure d isorder G40.909 ; Encounter to establish care Z76.89 and Screening cholesterol level Z13.220 [place] [address] [place] [id number] [address] [place] [address] 14 Jul, 2015 Hypertension I10 and Seizure disorder G40.909 [place] [address] [place] [id number] [address] [place] [address] Nov, [facility] [address] [id number] [address] [place] [address], [place] [address] Nov, [facility] [address] [id number] [address] [place] [address], [place] [address] Aug, [facility] [address] [id number] [address] [place] [address], [place] [address] Aug, [facility] [address] [id number] [address] [place] [address], [place] [address] Aug, [facility] [address] [id number] [address] [place] [address], [place] [address] Aug, [facility] [address] [id number] [address] [place] [address], [place] [address] Apr, [facility] [address] [id number] [address] [place] [address], [place] [address] Apr, [facility] [address] [id number] [address] [place] [address], [place] [address] Nov, [facility] [address] [id number] [address] [place] [address], [place] [address] December, [facility] [address] [id number] [address] [place] [address], [place] [address] December, [facility] [address] [id number] [address] [place] [address], [place] [address] December, [facility] [address] [id number] [address] [place] [address], [place] [address] Jun, [facility] [address] [id number] [address] [place] [address], [place] [address] Jun, [facility] [address] [id number] [address] [place] [address], [place] [address] Jun, [facility] [address] [id number] [address] [place] [address], [place] [address] Jun, [facility] [address] [id number] [address] [place] [address], [place] [address] Feb, [facility] [address] [facility] [id number] [address] [address] May, [facility] [address] [facility] [id number] [address] [address] May, [facility] [address] [facility] [id number] [address] [address] December, IMMUNIZATIONS No Known Immunizations SOCIAL HISTORY Never Assessed REASON FOR VISIT PLAN OF CARE VITAL SIGNS Height 73 in 2014-09-21 Weight 225 lbs 2014-09-21 Temperature 97.8 degrees Fahrenheit 2014-09-21 Heart Rate 80 bpm 2014-09-21 Respiratory Rate 18 2014-09-21 Blood pressure systolic 170 mmHg 2014-09-21 Blood pressure diastolic 110 mmHg 2014-09-21 MEDICATIONS Unknown Medications RESULTS No Results PROCEDURES Procedure Date Ordered Result Body Site BLOOD PRESSURE, MEASURED Sep 21, 2014 INSTRUCTIONS MEDICATIONS ADMINISTERED No Known Medications MEDICAL (GENERAL) HISTORY Type Description Date Medical History htn Medical History seizures Surgical History Surgery on PT right side of skull due to trauma 1995 Surgical History Hernia repair 1993
--- OUTSIDE RECORDS SUMMARY | 2020-01-05 16:14 | XMS REPORT ---
Author Author Francis Spaulding Doctor Organization [facility] Address Unknown Phone Unavailable Care Team Providers Care Tire Mounter Name Role Phone Migration, Doctor Unavailable Unavailable PROBLEMS Type Condition ICD9-CM Code [id number] Code Onset Dates Condition S tatus SNOMED Code Problem Seizure disorder G40.909 Active 128 110711 Problem Hypertension I10 Active 8104893 3 ALLERGIES No Information ENCOUNTERS Encounter Location Date Diagnosis [facility] [address] [facility] [id number] [address] [place] [address] Jan, Seizure disorder G40.909 [facility] [address] [facility] [id number] [address] [place] [address] Mar, Hypertension I10 ; Seizure d isorder G40.909 ; Encounter to establish care Z76.89 and Screening cholesterol level Z13.220 [facility] [address] [facility] [id number] [address] [place] [address] Jul, Hypertension I10 and Seizure disorder G40.909 [facility] [address] [facility] [id number] [address] [place] [address] Nov, [facility] [address] [facility] [id number] [address] [place] [address] Nov, [facility] [address] [facility] [id number] [address] [place] [address] Aug, [facility] [address] [facility] [id number] [address] [place] [address] Aug, [facility] [address] [facility] [id number] [address] [place] [address] Aug, [facility] [address] [facility] [id number] [address] [place] [address] Aug, [facility] [address] [facility] [id number] [address] [place] [address] Apr, [facility] [address] [id number] [address] [place] [address] Apr, [facility] [address] [id number] [address] [place] [address] Nov, [facility] [address] [id number] [address] [place] [address] December, [facility] [address] [id number] [address] [place] [address] December, [facility] [address] [id number] [address] [place] [address] December, [facility] [address] [id number] [address] [place] [address] Jun, [facility] [address] [id number] [address] [place] [address] Jun, [facility] [address] [id number] [address] [place] [address] Jun, [facility] [address] [id number] [address] [place] [address] Jun, [facility] [address] [id number] [address] [place] [address] Feb, [facility] [address] [id number] [address] [place] [address] May, [facility] [address] [id number] [address] [place] [address] May, [facility] [address] [id number] [address] [place] [address] December, IMMUNIZATIONS No Known Immunizations SOCIAL HISTORY Never Assessed REASON FOR VISIT EMR-[facility] [place] PLAN OF CARE VITAL SIGNS MEDICATIONS Medication Instructions Dosage Frequency Start Date End Date Duration S radha Lisinopril-Hydrochlorothiazide 10-12.5 mg take 1 tablet by Oral route 1 time per day Aug, Active Bactrim DS 800-160 mg 1 tablet by Oral route 2 times p er day for 10 day(s) Aug, Active Tegretol 200 mg take 1 tablet by Oral route 2 times per day Apr, Active RESULTS No Results PROCEDURES No Known procedures INSTRUCTIONS MEDICATIONS ADMINISTERED No Known Medications MEDICAL (GENERAL) HISTORY Type Description Date Medical History htn Medical History seizures Surgical History Surgery on PT right side of skull due to trauma 1995 Surgical History Hernia repair 1993
--- OUTSIDE RECORDS SUMMARY | 2020-01-05 16:14 | XMS REPORT ---
Author Author Francis LIVINGSTON Organization [facility] Address [address] [place] [address] Care Team Providers Care R[place]sman Name Role Phone KEILY LIVINGSTON Unavailable PROBLEMS Type Condition ICD9-CM Code [id number] Code Onset Dates Condition S tatus SNOMED Code Problem Cigarette nicotine dependence without complication F17.210 Active 76393665 Problem Allergic rhinitis, unspecified seasonality, unspecifie d trigger J30.9 Active 56541096 Problem Seizure disorder G40.909 Active 128 003126 Problem Hypertension I10 Active 4246387 3 Problem Mixed hyperlipidemia E78.2 Active 230759132 Problem Anxiety F41.9 Active 38017476 ALLERGIES No Information ENCOUNTERS Encounter Location Date Diagnosis [facility] [address] [facility] [id number] [address] [address] Aug, Allergic rhinitis, unspecifi ed seasonality, unspecified trigger J30.9 [facility] [address] [address] May, Acute non-recurrent frontal sinusitis J0 1.10 [facility] [address] [address] Mar, [facility] [address] [address] Feb, Hypertension I10 ; Anxiety F41.9 and Cig arette nicotine dependence without complication F17.210 [facility] [address] [address] Jan, Mixed hyperlipidemia E78.2 and Routine a dult health maintenance Z00.00 [facility] [address] [address] Jan, Hypertension I10 [facility] [address] [address] Jan, Seizure disorder G40.909 and Hypertensio n I10 [facility] [address] [address] Jan, Seizure disorder G40.909 [facility] [address] [address] Mar, Hypertension I10 ; Seizure disorder G40. 909 ; Encounter to establish care Z76.89 and Screening cholesterol level Z13.220 [facility] [address] [address] Jul, Hypertension I10 and Seizure disorder G4 0.909 [facility] [address] [address] Nov, [facility] [address] [address] Nov, [facility] [address] [address] Aug, [facility] [address] [address] Aug, [facility] [address] [address] Aug, [facility] [address] [address] Aug, [facility] [address] [address] Apr, [facility] [address] [address] Apr, [facility] [address] [address] Nov, [facility] [address] [address] December, [facility] [address] [address] December, [facility] [address] [id number] [place] [address] December, [facility] [address] [id number] [place] [address] Jun, [facility] [address] [id number] [place] [address] Jun, [facility] [address] [place] [id number] [place] [address] Jun, [facility] [address] [place] [id number] [place] [address] Jun, [facility] [address] [place] [id number] [place] [address] Feb, [facility] [address] [id number] [place] [address] May, [facility] [address] [id number] [place] [address] May, [facility] [address] [id number] [place] [address] December, IMMUNIZATIONS No Known Immunizations SOCIAL HISTORY Never Assessed REASON FOR VISIT PLAN OF CARE VITAL SIGNS MEDICATIONS No Known Medications RESULTS No Results PROCEDURES No Known procedures INSTRUCTIONS MEDICATIONS ADMINISTERED No Known Medications MEDICAL (GENERAL) HISTORY Type Description Date Medical History htn Medical History seizures Surgical History Surgery on PT right side of skull due to trauma 1995 Surgical History Hernia repair 1993
== END 2020-01-05 15:22 | disposition home or self-care (01) ==
LOC: EDUNIT# 13:12 → ER 13:13
DX: I16.0 Hypertensive urgency (principal); I10 Essential (primary) hypertension; G40.909 Epilepsy, unspecified, not intractable, without status epilepticus; F17.200 Nicotine dependence, unspecified, uncomplicated; Z88.0 Allergy status to penicillin; Z91.14 Patient's other noncompliance with medication regimen
CPT/HCPCS: 36415; 70450; 71045; 80053; 81000; 82962; 84484; 85025; 85379; 85610; 85730; 93005; 93041

== ENCOUNTER 2020-09-28 02:52 | Emergency (ER) | payer BC, MEDICARE ==
[~2020-09-28] VITALS: Ht 185.4 cm; Wt 104.0 kg
[~2020-09-28 02:52] MED LIST: METO-333 PO
[2020-09-28] MEDS: NITROGLYCERIN 0.4 MG SL TABS BTL 25'S SL PRN ×3 (03:12→03:29)
[2020-09-28 03:13] LABS: BASOPHILS # (AUTO) 0.1 10^3/uL (0.0-0.1); BASOPHILS % (AUTO) 1 % (0-10); EOSINOPHILS # (AUTO) 0.2 10^3/uL (0.0-0.3); EOSINOPHILS % (AUTO) 3 % (0-10); HEMATOCRIT 50 % (40-54); HEMOGLOBIN 16.2 g/dL (13.3-17.7); LYMPHOCYTES # (AUTO) 2.2 10^3/uL (1.0-4.0); LYMPHOCYTES % (AUTO) 30 % (12-44); MEAN CORPUSCULAR HEMOGLOBIN 28 pg (25-34); MEAN CORPUSCULAR HGB CONC 32 g/dL (32-36); MEAN CORPUSCULAR VOLUME 86 fL (80-99); MEAN PLATELET VOLUME 10.3 fL (9.0-12.2); MONOCYTES # (AUTO) 0.8 10^3/uL (0.0-1.0); MONOCYTES % (AUTO) 11 % (0-12); NEUTROPHILS # (AUTO) 4.1 10^3/uL (1.8-7.8); NEUTROPHILS % (AUTO) 55 % (42-75); PLATELET COUNT 174 10^3/uL (130-400); WHITE BLOOD COUNT 7.3 10^3/uL (4.3-11.0)
[2020-09-28] MEDS ORDERED: ASPIRIN 81 MG CHEW (CHILDREN'S ASA) PO ONE (03:15)
[2020-09-28 03:24] LABS: ALBUMIN 4.3 GM/DL (3.2-4.5)
[2020-09-28 03:25] LABS: CHLORIDE 104 MMOL/L (98-107); POTASSIUM 4.3 MMOL/L (3.6-5.0); SODIUM 139 MMOL/L (135-145)
[2020-09-28 03:27] LABS: GLUCOSE 109 MG/DL (70-105); TOTAL PROTEIN 7.7 GM/DL (6.4-8.2)
[2020-09-28 03:28] LABS: CARBON DIOXIDE 25 MMOL/L (21-32); INR 0.9 (0.8-1.4); PROTHROMBIN TIME PATIENT 12.6 SEC (12.2-14.7)
[2020-09-28 03:29] LABS: BILIRUBIN,TOTAL 0.4 MG/DL (0.1-1.0)
[2020-09-28 03:30] LABS: ALKALINE PHOSPHATASE 98 U/L (40-136)
[2020-09-28 03:31] LABS: CREATININE SERUM 0.93 MG/DL (0.60-1.30); GFR ESTIMATED > 60
[2020-09-28 03:32] LABS: BUN/CREATININE RATIO 16
[2020-09-28 03:34] LABS: ALANINE AMINOTRANSFERASE 36 U/L (0-55); MAGNESIUM 2.2 MG/DL (1.6-2.4)
[2020-09-28] MEDS ORDERED: LABETALOL HCL 20 MG/4 ML VIAL IV ONE (03:45)
--- NOTE | 2020-09-28 04:03 | ED Chest Pain ---
General Chief Complaint: Chest Pain Stated Complaint: CP Nursing Triage Note: started about midnight "woke me up it was so bad" NOT HAD THIS KIND OF PAIN BEFORE, DENIES SHORTNESS OF BREATH BUT C/O CP "STRAIGHT THROUGH THE MIDDLE OF MY CHEST" Nursing Sepsis Screen: No Definite Risk Source: patient Exam Limitations: no limitations History of Present Illness Date Seen by Provider: Sep 28, 2020 Time Seen by Provider: 02:57 Initial Comments This is 65-year-old gentleman presents to the emergency room with complaints of chest pain that started around midnight. It is fairly intense with maximum pain around 9 out of 10 and radiates to his mid back. He denies any cough, shortness of breath, fever, nausea, lightheadedness, or diaphoresis. He does complain of a generalized achiness into his extremities. He has no known history of coronary artery disease. He was seen in this ER last December for hypertensive urgency. Patient smokes tobacco marijuana but denies alcohol use. 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 He takes antiseizure medications. Allergies and Home Medications Allergies Coded Allergies: Penicillins (Verified Allergy, Unknown, 09/28/20) Home Medications Aspirin 81 Mg Tablet., 81 MG PO DAILY Prescribed by: RAIN FISHER on 09/28/20627 Lisinopril 20 Mg Tablet, 20 MG PO DAILY Prescribed by: RAIN FISHER on 09/28/20627 Metoprolol Tartrate 25 Mg Tablet, 25 MG PO BID Prescribed by: JAQUELINE LOPEZ on 01/05/20 151 Omeprazole 20 Mg Capsule.dr, 20 MG PO BID Prescribed by: RAIN FISHER on 09/28/20627 Patient Home Medication List Home Medication List Reviewed: Yes Review of Systems Review of Systems Constitutional: no symptoms reported EENTM: Other (Artificial right eye) Respiratory: No Symptoms Reported Cardiovascular: See HPI Gastrointestinal: No Symptoms Reported Genitourinary: No Symptoms Reported Musculoskeletal: see HPI Skin: no symptoms reported Psychiatric/Neurological: No Symptoms Reported Endocrine: No Symptoms Reported Hematologic/Lymphatic: No Symptoms Reported Past Ibvrlyj-Zcluut-Yhoexl Hx Past Med/Social Hx: Reviewed Nursing Past Med/Soc Hx Patient Social History Alcohol Use: Denies Use Drug of Choice: POT Smoking Status: Current Someday Smoker Type Used: Cigarettes 2nd Hand Smoke Exposure: No Recent Infectious Disease Expo: No Recent Hopitalizations: No Immunizations Up To Date Tetanus Booster (TDap): Unknown Seasonal Allergies Seasonal Allergies: No Past Medical History Surgeries: Yes (Prosthetic right EYE, cranial surgery) Respiratory: No Cardiac: Yes High Cholesterol, Hypertension Neurological: Yes Seizure Disorder, Traumatic Brain Injury Genitourinary: No Gastrointestinal: No Musculoskeletal: No Endocrine: No HEENT: Yes Eye Injury Loss of Vision: Right Cancer: No Psychosocial: No Integumentary: No Family Medical History No Pertinent Family Hx Physical Exam Vital Signs Vital Signs - First Documented 09/28/20 03:00 Temp 36.1 Pulse 73 Resp 12 B/P (MAP) 220/119 (152) Pulse Ox 96 O2 Delivery Room Air Capillary Refill : Less Than 3 Seconds Height, Weight, BMI Height: '" Weight: lbs. oz. kg; 30.00 BMI Method: General Appearance: No Apparent Distress, WD/WN HEENT: Normal ENT Inspection, Other (Prosthetic right eye, traumatic disfigurement of the right face) Neck: Normal Inspection Respiratory: Chest Non Tender, Lungs Clear, Normal Breath Sounds, No Accessory Muscle Use, No Respiratory Distress Cardiovascular: Regular Rate, Rhythm, No Edema, No Murmur, Normal Peripheral Pulses Gastrointestinal: Normal Bowel Sounds, Non Tender, Soft Extremity: Normal Inspection, Non Tender, No Pedal Edema Neurologic/Psychiatric: Alert, Oriented x3, No Motor/Sensory Deficits, Normal Mood/Affect, production cost estimator II-XII Norm as Tested Skin: Normal Color, Warm/Dry Progress/Results/Core Measures Results/Orders Lab Results Laboratory Tests Test 09/28/20 03:04 09/28/20 04:00 09/28/20 05:15 Range/Units White Blood Count 7.3 4.3-11.0 10^3/uL Red Blood Count 5.84 H 4.30-5.52 10^6/uL Hemoglobin 16.2 13.3-17.7 g/dL Hematocrit 50 40-54 % Mean Corpuscular Volume 86 80-99 fL Mean Corpuscular Hemoglobin 28 25-34 pg Mean Corpuscular Hemoglobin Concent 32 32-36 g/dL Red Cell Distribution Width 12.4 10.0-14.5 % Platelet Count 174 130-400 10^3/uL Mean Platelet Volume 10.3 9.0-12.2 fL Immature Granulocyte % (Auto) 0 % Neutrophils (%) (Auto) 55 42-75 % Lymphocytes (%) (Auto) 30 12-44 % Monocytes (%) (Auto) 11 0-12 % Eosinophils (%) (Auto) 3 0-10 % Basophils (%) (Auto) 1 0-10 % Neutrophils # (Auto) 4.1 1.8-7.8 10^3/uL Lymphocytes # (Auto) 2.2 1.0-4.0 10^3/uL Monocytes # (Auto) 0.8 0.0-1.0 10^3/uL Eosinophils # (Auto) 0.2 0.0-0.3 10^3/uL Basophils # (Auto) 0.1 0.0-0.1 10^3/uL Immature Granulocyte # (Auto) 0.0 0.0-0.1 10^3/uL Prothrombin Time 12.6 12.2-14.7 SEC INR Comment 0.9 0.8-1.4 Activated Partial Thromboplast Time 30 24-35 SEC Sodium Level 139 135-145 MMOL/L Potassium Level 4.3 3.6-5.0 MMOL/L Chloride Level 104 98-107 MMOL/L Carbon Dioxide Level 25 21-32 MMOL/L Anion Gap 10 5-14 MMOL/L Blood Urea Nitrogen 15 7-18 MG/DL Creatinine 0.93 0.60-1.30 MG/DL Estimat Glomerular Filtration Rate > 60 BUN/Creatinine Ratio 16 Glucose Level 109 H 70-105 MG/DL Calcium Level 9.0 8.5-10.1 MG/DL Corrected Calcium 8.8 8.5-10.1 MG/DL Magnesium Level 2.2 1.6-2.4 MG/DL Total Bilirubin 0.4 0.1-1.0 MG/DL Aspartate Amino Transf (AST/SGOT) 25 5-34 U/L Alanine Aminotransferase (ALT/SGPT) 36 0-55 U/L Alkaline Phosphatase 98 40-136 U/L Myoglobin 43.7 10.0-92.0 NG/ML Troponin I < 0.028 < 0.028 <0.028 NG/ML Total Protein 7.7 6.4-8.2 GM/DL Albumin 4.3 3.2-4.5 GM/DL Urine Opiates Screen NEGATIVE NEGATIVE Urine Oxycodone Screen NEGATIVE NEGATIVE Urine Methadone Screen NEGATIVE NEGATIVE Urine Propoxyphene Screen NEGATIVE NEGATIVE Urine Barbiturates Screen NEGATIVE NEGATIVE Ur Tricyclic Antidepressants Screen NEGATIVE NEGATIVE Urine Phencyclidine Screen NEGATIVE NEGATIVE Urine Amphetamines Screen NEGATIVE NEGATIVE Urine Methamphetamines Screen NEGATIVE NEGATIVE Urine Benzodiazepines Screen NEGATIVE NEGATIVE Urine Cocaine Screen NEGATIVE NEGATIVE Urine Cannabinoids Screen POSITIVE H NEGATIVE Thyroid Stimulating Hormone (TSH) 3.92 0.35-4.94 UIU/ML My Orders Orders - RAIN LEWIS MD Cbc With Automated Diff (09/28/20 02:57) Magnesium (09/28/20 02:57) Chest 1 View, Ap/Pa Only (09/28/20 02:57) Ekg Tracing (09/28/20 02:57) Comprehensive Metabolic Panel (09/28/20 02:57) Myoglobin Serum (09/28/20 02:57) Protime With Inr (09/28/20 02:57) Partial Thromboplastin Time (09/28/20 02:57) O2 (09/28/20 02:57) Monitor-Rhythm Ecg Trace Only (09/28/20 02:57) Ed Iv/Invasive Line Start (09/28/20 02:57) Nitroglycerin 0.4 Mg Btl 25's (Nitrostat (09/28/20 03:15) Aspirin Chewable Tablet (Baby Aspirin Ch (09/28/20 03:15) Troponin I (09/28/20 03:04) Labetalol Injection (Normodyne Injection (09/28/20 03:45) Ct Milly Chest/Noang Abd-Pelv W (09/28/20 04:03) Drug Screen Stat (Urine) (09/28/20 04:15) Troponin I (09/28/20 05:05) Thyroid Stimulating Hormone (09/28/20 05:15) Iohexol Injection (Omnipaque 350 Mg/Ml 1 (09/28/20 05:30) Received Contrast (Hold Metformin- Contr (09/28/20 05:30) Sodium Chloride Flush (Catheter Flush Sy (09/28/20 05:30) Ns (Ivpb) (Sodium Chloride 0.9% Ivpb Bag (09/28/20 05:30) Medications Given in ED Current Medications Medications Dose Ordered Sig/Gasper Route Start Time Stop Time Status Last Admin Dose Admin Aspirin 324 mg ONCE ONCE PO 09/28/20 03:15 09/28/20 03:17 DC 09/28/20 03:08 324 MG Iohexol 100 ml ONCE ONCE IV 09/28/20 05:30 09/28/20 05:31 DC 09/28/20 05:37 100 ML Labetalol HCl 20 mg ONCE ONCE IV 09/28/20 03:45 09/28/20 03:46 DC 09/28/20 03:46 10 MG Nitroglycerin 0.4 mg UD PRN SL 09/28/20 03:15 09/28/20 03:29 DC 09/28/20 03:29 0.4 MG Sodium Chloride 10 ml NEEDED PRN IV 09/28/20 05:30 09/28/20 06:43 DC 09/28/20 05:38 10 ML Sodium Chloride 100 ml ONCE ONCE IV 09/28/20 05:30 09/28/20 05:31 DC 09/28/20 05:38 80 ML Vital Signs/I&O 09/28/20 09/28/20 09/28/20 09/28/20 03:00 03:00 03:22 03:26 Temp 36.1 36.1 Pulse 73 77 Resp 12 17 B/P (MAP) 220/119 (152) 187/116 (139) 170/125 (140) Pulse Ox 96 95 O2 Delivery Room Air Room Air 09/28/20 09/28/20 03:31 06:40 Pulse 64 Resp 20 B/P (MAP) 189/114 (139) 173/80 (139) Pulse Ox 100 O2 Delivery Room Air Blood Pressure Mean: 139 Progress Progress Note #1: Time: 05:19 Progress Note Patient was severely hypertensive upon arrival. He was given aspirin and nitroglycerin x3. Blood pressure improved minimally. This was followed by labetalol 10 mg IV. He had significant improvement in blood pressure after labetalol. Chest pain was 6/10 during initial assessment. He now rates it as 3/10. Initial work-up was fairly unremarkable. Repeat troponin is pending at this time. Because of the chest pain radiating to the back and down into the thighs in the context of severe hypertension, CT angiogram of the aorta is being obtained to rule out aortic dissection. Progress Note #2: Time: 18:30 Progress Note Repeat troponin was negative. There were no aneurysmal or dissection changes to the aorta on CT scan. Patient's pain eventually resolved without any further treatment. Blood pressure on my last evaluation was 150/80. I discussed the case with Dr. Lim. He suggested the patient start on aspirin and lisinopril in addition to his metoprolol. He would like to see him in the clinic within the next week. Return precautions were discussed with the patient and his . Initial ECG Impression Date: Sep 28, 2020 Initial ECG Impression Time: 03:00 Initial ECG Rate: 70 Initial ECG Rhythm: Normal Sinus Comment Normal sinus rhythm with no ST elevation or depression. No abnormal intervals or axis deviation. Diagnostic Imaging Diagonstic Imaging: Xray Plain Films/CT/US/NM/MRI: chest Comments Chest x-ray viewed by me. Report not yet available. No acute abnormalities appreciated. Diagonstic Imaging: CT Plain Films/CT/US/NM/MRI: chest, abdomen, pelvis Comments CT angiogram of the chest, abdomen and pelvis was viewed by me and stat rad report reviewed. There were no aneurysmal or dissection pathologies identified. No other source of pain was identified. Departure Impression Primary Impression: Chest pain Qualified Codes: R07.9 - Chest pain, unspecified Additional Impression: Severe hypertension Disposition: 01 HOME, SELF-CARE Condition: Improved Departure-Patient Inst. Decision time for Depature: 06:23 Referrals: KEILY LIVINGSTON MD (PCP/Family) Primary Care Physician Patient Instructions: High Blood Pressure (DC), Chest Pain, Adult ED Add. Discharge Instructions: Take aspirin 81 mg every day. Add lisinopril as prescribed to your current medications. Your pain may be caused by acid reflux. Try a 2-week trial of omeprazole as prescribed. Additionally, avoid the following: Eating large meals, eating close to bedtime, caffeine, carbonation, chocolate, citrus fruits and juices, tomato products, alcohol, tobacco, mints, fatty or greasy foods, spicy foods, NSAID medications such as ibuprofen or naproxen, or anything else you know irritate your stomach. Call Dr. Lim's office today to schedule an appointment. He would like to see you within the next week. Return to the emergency room if you have worsening symptoms. Call with any questions or concerns. All discharge instructions reviewed with patient and/or family. Voiced understanding. Scripts Aspirin (Aspirin EC) 81 Mg Tablet. 81 MG PO DAILY, #30 TAB Prov: RAIN LEWIS MD 09/28/20 Omeprazole (Omeprazole) 20 Mg Capsule. 20 MG PO BID, #30 CAP Prov: RAIN LEWIS MD 09/28/20 Lisinopril (Lisinopril) 20 Mg Tablet 20 MG PO DAILY, #30 TAB Prov: RAIN LEWIS MD 09/28/20 Work/School Note: Work Release Form Date Seen in the Emergency Department: Sep 28, 2020 Return to Work: Sep 29, 2020 Other Restrictions Listed Below: Stop activity that causes chest pain, shortness of breath, dizziness, etc. Restrictions: Seek medical attention if these symptoms occur. Copy Copies To 1: JANE LIM MD Copies To 2: KEILY LIVINGSTON MD, JOSHUA T MD Sep 28, 2020 04:03
[2020-09-28 04:34] LABS: AMPHETAMINE SCREEN, URINE NEGATIVE (NEGATIVE); BARBITURATE SCREEN URINE NEGATIVE (NEGATIVE); BENZODIAZEPINES SCREEN URINE NEGATIVE (NEGATIVE); CANNABINOID SCREEN, URINE POSITIVE (NEGATIVE); COCAINE SCREEN URINE NEGATIVE (NEGATIVE); METHADONE STAT NEGATIVE (NEGATIVE); METHAMPHETAMINE SCREEN URINE S NEGATIVE (NEGATIVE); OPIATE SCREEN URINE NEGATIVE (NEGATIVE); OXYCODONE STAT NEGATIVE (NEGATIVE); PROPOXYPHENE STAT NEGATIVE (NEGATIVE); TRICYCLIC ANTIDEPRESSANTS SCRE NEGATIVE (NEGATIVE)
[2020-09-28] MEDS ORDERED: HOLD METFORMIN - RECEIVED CONTRAST 20 ML VIAL IV SCH (05:30)
[2020-09-28] MEDS ORDERED: NS 100 ML (IVPB) BAG IV ONE (05:30)
[2020-09-28] MEDS ORDERED: IOHEXOL 350 MG/ML 100 ML (OMNIPAQUE 350) VIAL IV ONE (05:30)
[2020-09-28] MEDS ORDERED: CATHETER FLUSH 10 ML SYR IV PRN (05:30)
--- NOTE | 2020-09-28 06:24 | Diagnostic Imaging Report ---
INDICATION: Chest pain, HTN, bilat thigh pain CTA chest, abdomen and pelvis Thin axial sections through the chest, abdomen and pelvis are obtained following intravenous contrast bolus. Multiplanar MIP images were reconstructed and reviewed. All CT scans use one or more of the following dose optimizing techniques: automated exposure control, MA and/or KvP adjustment based on patient size and exam type or iterative reconstruction. CT angiography of the chest with CT abdomen and pelvis. FINDINGS: CT angiography of the chest: Good opacification of aorta and pulmonary arteries. There are no filling defects to indicate pulmonary emboli. No evidence of aortic aneurysm or dissection. The lungs are well-aerated and clear. No evidence of pleural effusion. No pericardial effusion. No mediastinal or hilar adenopathy pathologic size. No blastic or lytic bony lesion. IMPRESSION: Mild atherosclerotic changes aorta with no evidence of pulmonary emboli. CT abdomen and pelvis: Liver appears normal. Gallbladder and bile ducts are normal. Pancreas and spleen are normal. The adrenal glands are normal. Kidneys are normal. Normal enhancement of the aorta and abdominal vessels. Aorta is atherosclerotic without aneurysm or dissection. There is contrast in the bladder which is not distended. The prostate is enlarged. Bowel gas pattern is normal. The appendix is visualized. No intra-abdominal adenopathy demonstrated. No blastic or lytic bony lesion. IMPRESSION: Dense atherosclerotic changes aorta. No acute abnormalities noted. These findings are concordant with the preliminary report. Dictated by: Dictated on workstation # [id number]
[2020-09-28] MEDS ORDERED: ASPI-1238 PO (06:28)
[2020-09-28] MEDS ORDERED: OMEP20CA18 PO (06:28)
[2020-09-28] MEDS ORDERED: LISI-552 PO (06:28)
[2020-09-28 06:40] VITALS: BP 173/80
--- NOTE | 2020-09-28 07:20 | Diagnostic Imaging Report ---
INDICATION: Chest pain. Upright chest shows normal heart size and vascularity. The lungs are clear. There is no effusion or pneumothorax. There is no bony abnormality. IMPRESSION: No acute abnormality is seen with no change from 01/05/2020. Dictated by: Dictated on workstation # [id number]
== END 2020-09-28 06:42 | disposition home or self-care (01) ==
LOC: EDUNIT# 02:52 → ER 02:55
DX: I10 Essential (primary) hypertension (principal); G40.909 Epilepsy, unspecified, not intractable, without status epilepticus; F17.210 Nicotine dependence, cigarettes, uncomplicated; Z87.820 Personal history of traumatic brain injury; Z88.0 Allergy status to penicillin
CPT/HCPCS: 36415; 71045; 71275; 74177; 80053; 80306; 83735; 83874; 84443; 84484; 85025; 85610; 85730; 93005; 93041

== ENCOUNTER 2020-10-02 11:16 | Emergency (ER) | payer MEDICARE ==
[~2020-10-02] VITALS: Ht 185.5 cm; Wt 104.3 kg
[~2020-10-02 11:16] MED LIST changes: +ASPI-1238 PO; +LISI-552 PO; +OMEP20CA18 PO
--- NOTE | 2020-10-02 11:33 | ED General ---
General Chief Complaint: General Problems/Pain Stated Complaint: BACK PAIN,FEET AND FINGERS GOING NUMB Source of Information: Patient Exam Limitations: No Limitations History of Present Illness Date Seen by Provider: Oct 02, 2020 Time Seen by Provider: 11:32 Initial Comments To ER with a 1 week history of bilateral hands and feet tingling and severe midthoracic back pain. He was seen here about a week ago for chest pain. No history of this. No fevers or chills. No injury. No nausea or vomiting. No abdominal pain Timing/Duration: 1 Week Severity: Moderate Associated Systoms: Denies Symptoms Allergies and Home Medications Allergies Coded Allergies: Penicillins (Verified Allergy, Unknown, 09/28/20) Home Medications Aspirin 81 Mg Tablet., 81 MG PO DAILY Prescribed by: RAIN FISHER on 09/28/20627 Lisinopril 20 Mg Tablet, 20 MG PO DAILY Prescribed by: RAIN FISHER on 09/28/20627 Metoprolol Tartrate 25 Mg Tablet, 25 MG PO BID Prescribed by: JAQUELINE LOPEZ on 01/05/20 151 Omeprazole 20 Mg Capsule.dr, 20 MG PO BID Prescribed by: RAIN FISHER on 09/28/20627 Patient Home Medication List Home Medication List Reviewed: Yes Review of Systems Review of Systems Constitutional: see HPI; No chills, No fever EENTM: see HPI Respiratory: no symptoms reported; No cough Cardiovascular: no symptoms reported Genitourinary: no symptoms reported Musculoskeletal: see HPI, back pain Skin: no symptoms reported Psychiatric/Neurological: No Symptoms Reported Hematologic/Lymphatic: No Symptoms Reported Immunological/Allergic: no symptoms reported Past Imrhkfr-Fdfsvs-Wmazda Hx Patient Social History Alcohol Use: Denies Use Drug of Choice: POT Smoking Status: Current Everyday Smoker Type Used: Cigarettes 2nd Hand Smoke Exposure: No Recent Hopitalizations: No Immunizations Up To Date Tetanus Booster (TDap): Unknown Seasonal Allergies Seasonal Allergies: No Past Medical History Surgeries: Yes (Prosthetic right EYE, cranial surgery) Respiratory: No Cardiac: Yes High Cholesterol, Hypertension Neurological: Yes Seizure Disorder, Traumatic Brain Injury Genitourinary: No Gastrointestinal: No Musculoskeletal: No Endocrine: No HEENT: Yes Eye Injury Loss of Vision: Right Cancer: No Psychosocial: No Integumentary: No Family Medical History No Pertinent Family Hx Physical Exam Vital Signs Capillary Refill : Height, Weight, BMI Height: '" Weight: lbs. oz. kg; 30.00 BMI Method: General Appearance: No Apparent Distress, WD/WN Eyes: Bilateral Eye Normal Inspection, Bilateral Eye PERRL, Bilateral Eye EOMI HEENT: PERRL/EOMI, TMs Normal Neck: Full Range of Motion, Normal Inspection Respiratory: No Accessory Muscle Use, No Respiratory Distress Gastrointestinal: Normal Bowel Sounds, Non Tender, Soft Extremity: Normal Capillary Refill, Normal Inspection Neurologic/Psychiatric: Alert, Oriented x3 Skin: Normal Color, Warm/Dry Comments Supervisor Assembly are equal. Strength 5 out of 5 both extremities. Brisk capillary refill of the fingertips and toes. No palpable dorsalis pedis pulse on either foot but both feet are warm to the touch. Currently in the semirecumbent position he is pain-free but he states the pain is worse when he lays flat or on his side. Denies any injury. Most of his pain is in the thoracic spine region. No history of this Progress/Results/Core Measures Suspected Sepsis SIRS Temperature: Pulse: Respiratory Rate: Laboratory Tests 10/02/20 11:47: White Blood Count 10.2 Blood Pressure / Mean: Laboratory Tests 10/02/20 11:47: Creatinine 1.07, Platelet Count 206, Total Bilirubin 0.6 Results/Orders Lab Results Laboratory Tests Test 10/02/20 11:47 Range/Units White Blood Count 10.2 4.3-11.0 10^3/uL Red Blood Count 5.59 H 4.30-5.52 10^6/uL Hemoglobin 15.9 13.3-17.7 g/dL Hematocrit 48 40-54 % Mean Corpuscular Volume 85 80-99 fL Mean Corpuscular Hemoglobin 28 25-34 pg Mean Corpuscular Hemoglobin Concent 34 32-36 g/dL Red Cell Distribution Width 12.4 10.0-14.5 % Platelet Count 206 130-400 10^3/uL Mean Platelet Volume 10.7 9.0-12.2 fL Immature Granulocyte % (Auto) 0 % Neutrophils (%) (Auto) 70 42-75 % Lymphocytes (%) (Auto) 19 12-44 % Monocytes (%) (Auto) 9 0-12 % Eosinophils (%) (Auto) 1 0-10 % Basophils (%) (Auto) 1 0-10 % Neutrophils # (Auto) 7.1 1.8-7.8 10^3/uL Lymphocytes # (Auto) 2.0 1.0-4.0 10^3/uL Monocytes # (Auto) 1.0 0.0-1.0 10^3/uL Eosinophils # (Auto) 0.1 0.0-0.3 10^3/uL Basophils # (Auto) 0.1 0.0-0.1 10^3/uL Immature Granulocyte # (Auto) 0.0 0.0-0.1 10^3/uL Erythrocyte Sedimentation Rate 7 0-30 MM/HR Sodium Level 136 135-145 MMOL/L Potassium Level 4.2 3.6-5.0 MMOL/L Chloride Level 105 98-107 MMOL/L Carbon Dioxide Level 21 21-32 MMOL/L Anion Gap 10 5-14 MMOL/L Blood Urea Nitrogen 16 7-18 MG/DL Creatinine 1.07 0.60-1.30 MG/DL Estimat Glomerular Filtration Rate > 60 BUN/Creatinine Ratio 15 Glucose Level 115 H 70-105 MG/DL Calcium Level 8.9 8.5-10.1 MG/DL Corrected Calcium 8.7 8.5-10.1 MG/DL Total Bilirubin 0.6 0.1-1.0 MG/DL Aspartate Amino Transf (AST/SGOT) 20 5-34 U/L Alanine Aminotransferase (ALT/SGPT) 28 0-55 U/L Alkaline Phosphatase 70 40-136 U/L C-Reactive Protein High Sensitivity 0.14 0.00-0.50 MG/DL Total Protein 7.4 6.4-8.2 GM/DL Albumin 4.2 3.2-4.5 GM/DL My Orders Orders - ROSA MARIA RAI APRN Hemoglobin A1c (10/02/20 11:29) Cbc With Automated Diff (10/02/20 11:29) Erythrocyte Sedimentation Rate (10/02/20 11:29) Hs C Reactive Protein (10/02/20 11:29) Comprehensive Metabolic Panel (10/02/20 11:29) Ct Cerv/Thoracic/Lumbar Wo (10/02/20 11:29) Vital Signs/I&O Capillary Refill : Departure Impression Primary Impression: Thoracic degenerative disc disease Additional Impressions: Cervical radiculopathy Lumbar radiculopathy Disposition: 01 HOME, SELF-CARE Condition: Stable Departure-Patient Inst. Decision time for Depature: 12:53 Referrals: KEILY LIVINGSTON MD (PCP/Family) Primary Care Physician Patient Instructions: Radiculopathy, Degenerative Disc Disease (DC) Add. Discharge Instructions: 1. Steroids as directed in addition to pain medication. Follow-up with Dr. Livingston next week. All discharge instructions reviewed with patient and/or family. Voiced understanding. Scripts Prednisone (Prednisone) 20 Mg Tab 40 MG PO DAILY, #8 TAB 0 Refills Prov: ROSA MARIA RAI APRN 10/02/20 Hydrocodone/Acetaminophen (Hydrocodone-Acetamin 5-325 mg) 1 Each Tablet 1 TAB PO Q4H PRN for PAIN-MODERATE (5-7), #10 TAB Prov: ROSA MARIA RAI APRN 10/02/20 ROSA MARIA RAI APRN Oct 02, 2020 11:33
[2020-10-02 11:54] LABS: BASOPHILS # (AUTO) 0.1 10^3/uL (0.0-0.1); BASOPHILS % (AUTO) 1 % (0-10); EOSINOPHILS # (AUTO) 0.1 10^3/uL (0.0-0.3); EOSINOPHILS % (AUTO) 1 % (0-10); HEMATOCRIT 48 % (40-54); HEMOGLOBIN 15.9 g/dL (13.3-17.7); LYMPHOCYTES % (AUTO) 19 % (12-44); MEAN CORPUSCULAR HEMOGLOBIN 28 pg (25-34); MEAN CORPUSCULAR HGB CONC 34 g/dL (32-36); MEAN CORPUSCULAR VOLUME 85 fL (80-99); MEAN PLATELET VOLUME 10.7 fL (9.0-12.2); MONOCYTES % (AUTO) 9 % (0-12); NEUTROPHILS # (AUTO) 7.1 10^3/uL (1.8-7.8); NEUTROPHILS % (AUTO) 70 % (42-75); PLATELET COUNT 206 10^3/uL (130-400); WHITE BLOOD COUNT 10.2 10^3/uL (4.3-11.0)
[2020-10-02 12:03] LABS: ALBUMIN 4.2 GM/DL (3.2-4.5)
[2020-10-02 12:04] LABS: CHLORIDE 105 MMOL/L (98-107); POTASSIUM 4.2 MMOL/L (3.6-5.0); SODIUM 136 MMOL/L (135-145)
[2020-10-02 12:05] LABS: CALCIUM 8.9 MG/DL (8.5-10.1)
[2020-10-02 12:06] LABS: GLUCOSE 115 MG/DL (70-105); TOTAL PROTEIN 7.4 GM/DL (6.4-8.2)
[2020-10-02 12:07] LABS: CARBON DIOXIDE 21 MMOL/L (21-32)
[2020-10-02 12:08] LABS: BILIRUBIN,TOTAL 0.6 MG/DL (0.1-1.0)
[2020-10-02 12:09] LABS: ALKALINE PHOSPHATASE 70 U/L (40-136)
[2020-10-02 12:10] LABS: CREATININE SERUM 1.07 MG/DL (0.60-1.30); GFR ESTIMATED > 60
[2020-10-02 12:11] LABS: BUN/CREATININE RATIO 15
[2020-10-02 12:13] LABS: ALANINE AMINOTRANSFERASE 28 U/L (0-55)
[2020-10-02 12:41] LABS: ERYTHROCYTE SEDIMENTATION RATE 7 MM/HR (0-30)
--- NOTE | 2020-10-02 12:48 | Diagnostic Imaging Report ---
INDICATION: Numbness in both hands and feet, mid back pain onset one week ago. No known trauma. Comparison studies: CT angiography of the chest from 4 days ago. FINDINGS: CT scan of the cervical spine demonstrates spondylosis mainly in the mid cervical spine. There is reversal of the normal lordotic curvature. No fracture or subluxation is present. Calcifications are seen in the carotid bifurcations. Soft tissues of the neck are otherwise normal. The lung apices are clear. C3-C4 level demonstrates facet arthropathy mainly on the left side with moderate narrowing of the right neural foramina. C4-C5 level demonstrates disc space narrowing and osteophytic ridging. Mild central and bilateral foraminal stenosis present. C5-C6 level demonstrates disc space narrowing with osteophytic ridging. There is moderate narrowing of the neural foramina right greater than left. Mild central stenosis present. C6/C7 level demonstrates mild disc space narrowing. Some facet arthropathy is present on the right with moderate narrowing of the right lateral neural foramina. C7-T1 level appears normal. Thoracic spine: Examination demonstrates no fracture or subluxation. Visualized portions of the lungs are clear. Arterial sclerosis present. Degenerative disc changes present at T7-T8. No stenosis is present. Lumbar spine: Noncontrast CT scan of the lumbar spine demonstrates no fractures. Mild arterial sclerosis is present. The L3-L4 level demonstrates a broad-based disc bulge. Mild facet arthropathy is present. There is mild to moderate central stenosis. L4-L5 level demonstrates moderate facet arthropathy with 3 mm anterior listhesis. Mild disc bulge is present. There is fairly high-grade central stenosis. Mild foraminal stenosis present left greater than right. L5-S1 level demonstrates facet arthropathy right greater than left. Mild disc bulge is present. There is some [id number] narrowing of the neural foramina. IMPRESSION: 1. Spinal stenosis is seen in the cervical and lumbar spine as above. Mild degenerative changes present in the thoracic spine without stenosis. Dictated by: Dictated on workstation # [id number]
[2020-10-02] MEDS ORDERED: ACHD5005 PO (13:00)
[2020-10-02] MEDS ORDERED: PRD20T PO (13:00)
[2020-10-02 13:13] VITALS: BP 138/90
== END 2020-10-02 13:13 | disposition home or self-care (01) ==
LOC: EDUNIT# 11:16 → ER 11:18
DX: M51.34 Other intervertebral disc degeneration, thoracic region (principal); M54.12 Radiculopathy, cervical region; M54.16 Radiculopathy, lumbar region; I10 Essential (primary) hypertension; F17.210 Nicotine dependence, cigarettes, uncomplicated; Z87.820 Personal history of traumatic brain injury; Z88.0 Allergy status to penicillin; Z79.82 Long term (current) use of aspirin
CPT/HCPCS: 36415; 72125; 72128; 72131; 80053; 83036; 85025; 85652; 86141

== ENCOUNTER → 2020-10-14 | Outpatient (CLI) | payer MEDICARE ==
[~2020-10-14] MED LIST changes: +ACHD5005 PO; -LISI-552 PO; +LISI20TA26 PO; +PRD20T PO
--- NOTE | 2020-10-14 11:36 | Diagnostic Imaging Report ---
PROCEDURE: MR imaging cervical spine without contrast. TECHNIQUE: Multiplanar, multisequence MR imaging of the cervical spine was performed without contrast. INDICATION: Neck pain and radiculopathy. COMPARISON: CT of the cervical spine dated 10/02/2020. FINDINGS: There is reversal of cervical lordosis centered at the C4-C5 level unchanged from prior. Cervical vertebral stature is within normal limits. The sclerotic signal involving the C4 and C5 vertebral bodies and endplates is unchanged when the differing modalities are taken into account. The cervical spinal cord itself has a normal volume and normal morphology and normal signal intensity. No paraspinal mass, hemorrhage or fluid collection. The craniocervical relationship is normal. The C1-C2 and C2-C3 levels and disc are normal. There was no stenosis. C3-C4: There is mild disc desiccation. There are mild endplate osteophytes and uncovertebral joint spurring and hypertrophy resulting in what appears to be mild degrees of biforaminal stenosis. No substantial canal narrowing. C4-C5: There is severe disc desiccation, stature loss with endplate osteophytes and bulging disc material anterior greater than posterior. The posterior disease indents the ventral thecal sac and results in a mujy-hg-odlprcfj magnitude of canal stenosis. There is bndawdve-ty-yhnayw right and a moderate degree of left foraminal narrowing. C5-C6: Posterior osteophyte disc material indents the ventral thecal sac with bskjwgci-ti-fbhvzx canal stenosis. There is moderate left and severe right neural foraminal stenosis. C6-C7: Osteophyte disc material indents the ventral thecal sac. There is moderate canal stenosis. There is moderate right and severe left foraminal narrowing. IMPRESSION: Substantial degrees of multilevel foraminal greater than canal stenosis owing to disc material endplate osteophytes and uncovertebral joint spurring as listed level by level above when differing modality taken into account. No change when correlated with recent CT. No acute bony or acute cord pathology found. Dictated by: Dictated on workstation # [id number]
== END ==
LOC: RAD 08:55
PROVIDERS: ATTEND Internal Medicine
DX: M50.11 Cervical disc disorder with radiculopathy, high cervical region (principal); M50.121 Cervical disc disorder at C4-C5 level with radiculopathy; M48.02 Spinal stenosis, cervical region; M25.78 Osteophyte, vertebrae
CPT/HCPCS: 72141

== ENCOUNTER 2021-02-20 10:33 | Inpatient (IN) | payer MEDICARE ==
[~2021-02-20] VITALS: Ht 182 cm; Wt 104.2 kg
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
[2021-02-20 11:15] LABS: BASOPHILS # (AUTO) 0.1 10^3/uL (0.0-0.1); BASOPHILS % (AUTO) 1 % (0-10); CHLORIDE 107 MMOL/L (98-107); EOSINOPHILS # (AUTO) 0.1 10^3/uL (0.0-0.3); EOSINOPHILS % (AUTO) 1 % (0-10); HEMATOCRIT 48 % (40-54); HEMOGLOBIN 16.1 g/dL (13.3-17.7); LYMPHOCYTES # (AUTO) 1.9 10^3/uL (1.0-4.0); LYMPHOCYTES % (AUTO) 21 % (12-44); MEAN CORPUSCULAR HEMOGLOBIN 29 pg (25-34); MEAN CORPUSCULAR HGB CONC 34 g/dL (32-36); MEAN CORPUSCULAR VOLUME 85 fL (80-99); MONOCYTES # (AUTO) 0.9 10^3/uL (0.0-1.0); MONOCYTES % (AUTO) 10 % (0-12); NEUTROPHILS % (AUTO) 66 % (42-75); PLATELET COUNT 227 10^3/uL (130-400); SODIUM 139 MMOL/L (135-145)
[2021-02-20 11:16] LABS: CALCIUM 8.9 MG/DL (8.5-10.1)
[2021-02-20 11:17] LABS: GLUCOSE 113 MG/DL (70-105)
[2021-02-20 11:18] LABS: CARBON DIOXIDE 21 MMOL/L (21-32)
[2021-02-20 11:21] LABS: BUN/CREATININE RATIO 15; CREATININE SERUM 0.81 MG/DL (0.60-1.30); GFR ESTIMATED > 60
--- NOTE | 2021-02-20 12:00 | Diagnostic Imaging Report ---
PROCEDURE: CT head without contrast. TECHNIQUE: Multiple contiguous axial images were obtained through the brain without the use of intravenous contrast. Auto Exposure Controls were utilized during the CT exam to meet ALARA standards for radiation dose reduction. INDICATION: Left arm weakness. Comparison is made with prior head CT from 01/05/2020. Postoperative changes of a right sided frontal parietal craniectomy with prosthetic skull flap is again seen. Underlying encephalomalacia in the right temporal as well as frontal and parietal lobes appears similar to prior exam consistent with prior infarct or trauma. The ventricular size and sulcal pattern are stable. No sulcal effacement is seen. There is no midline shift. No acute intra-axial or extra-axial hemorrhage is seen. Cisterns are patent. 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 IMPRESSION: Stable chronic changes when compared with prior head CT from 01/05/2020. No acute intracranial process is detected. Dictated by: Dictated on workstation # [id number]
--- NOTE | 2021-02-20 12:05 | Diagnostic Imaging Report ---
Indication: Left arm numbness. Time of exam: 11:42 AM Correlation is made with prior chest from 09/28/2020. The heart size is normal. The pulmonary vascularity is unremarkable. The lungs are clear. No infiltrate, effusion or pneumothorax is detected. Impression: No acute cardiopulmonary process is detected. Dictated by: Dictated on workstation # [id number]
[2021-02-20] MEDS ORDERED: LABETALOL HCL 20 MG/4 ML VIAL IV ONE (12:30)
[2021-02-20] MEDS ORDERED: hydrALAZINE (APESOLINE) 20 MG/ML VIAL IV ONE (12:30)
[2021-02-20] MEDS ORDERED: ASPIRIN 81 MG CHEW (CHILDREN'S ASA) ONE (13:40)
[2021-02-20] MEDS ORDERED: hydrALAZINE (APRESOLINE) 25 MG TAB PO ONE (13:45)
[2021-02-20] MEDS ORDERED: amLODIPine 10 MG (NORVASC) TAB PO ONE (13:45)
[2021-02-20] MEDS ORDERED: CATHETER FLUSH 10 ML SYR IV PRN (14:15)
--- NOTE | 2021-02-20 15:52 | Tele-ICU Consult ---
History of Present Illness History of Present Illness Date Seen by Provider: Feb 20, 2021 Time Seen by Provider: 15:51 Date of Admission Allergies and Home Medications Allergies Coded Allergies: Penicillins (Verified Allergy, Unknown, 09/28/20) Home Medications Aspirin 81 Mg Tablet., 81 MG PO DAILY Prescribed by: RAIN FISHER on 09/28/20 0628 Hydrocodone/Acetaminophen 1 Each Tablet, 1 TAB PO Q4H PRN for PAIN-MODERATE (5- 7) Prescribed by: ROSA MARIA RAI on 10/02/20 1301 Lisinopril 20 Mg Tablet, 20 MG PO DAILY Prescribed by: RAIN FISHER on 09/28/20 0628 Metoprolol Tartrate 25 Mg Tablet, 25 MG PO BID Prescribed by: JAQUELINE LOPEZ on 01/05/20 1515 Omeprazole 20 Mg Capsule., 20 MG PO BID Prescribed by: RAIN FISHER on 09/28/20 0628 Prednisone 20 Mg Tab, 40 MG PO DAILY Prescribed by: ROSA MARIA RAI on 10/02/20 1300 Past Medical/Social/Family Hx Patient Social History Tobacco Use?: Yes Tobacco type used: Cigarettes Smoking Status: Current Everyday Smoker Use of E-Cig and/or Vaping dev: No Substance use?: Yes Substance type: Marijuana Substance frequency: Daily Alcohol Use?: No Pt stated abuse/neglect: No Immunizations Up To Date Influenza Vaccine Up-to-Date: Yes; Up-to-Date Tetanus Booster (TDap): Unknown Current Status Advance Directives: No Communicates: Verbally Primary Language: Taiwanese Preferred Spoken Language: Taiwanese Is interpretation needed?: No Sensory deficits: Vision impairment Review of Systems Constitutional: see HPI Sepsis Event Evaluation Height, Weight, BMI Height: '" Weight: lbs. oz. kg; 32.00 BMI Method: Exam Exam Patient acknowledged, consented, and participated in this virtual visit which was conducted using real time audio/video Vital Signs Date Time Temp Pulse Resp B/P (MAP) Pulse Ox O2 Delivery O2 Flow Rate FiO2 02/20/21 14:22 36.5 Room Air 02/20/21 14:12 76 02/20/21 14:00 Room Air 02/20/21 14:00 192/118 (142) Room Air 02/20/21 13:46 73 20 238/144 98 02/20/21 10:37 36.7 68 18 170/92 (118) 98 Room Air Height & Weight Height: '" Weight: lbs. oz. kg; 32.00 BMI Method: General Appearance: No Apparent Distress Capillary Refill: Less Than 3 Seconds Gastrointestinal: normal bowel sounds, non tender, soft Results Lab Laboratory Tests 02/20/21 10:43 Assessment/Plan Assessment/Plan (Tele-ICU Physician , consultation) Available chart/ vitals / labs / Images reviewed H&P is from ER notes Patient's information available about PMH, Shx, Fhx allergy reviewed in EMR. ROS as per chart and RN report Patient admitted 02/20 with LUE weakness for 3 days Now in ICU, hemodynamically stable Video assessment done using teleICU camera, rest of exam as per RN Discussed with RN. Consultants: jeannette, neuro stroke in A/P LUE weakness - CTH - no acute findings -MRI brain - neurology consulted , as per ER - discussed with stroke neurology -neurocheck/NIHSS/VS monitoring per stroke protocol -IV hydralazine and labetalol PRN for BP control -Antithrombotic medication plan as per neuro HTN urgency - in ER 175/110-190 /121 with max 238/144 , with HR 50s - hydralazin given ( target BP fpr today of <170/<110 mmHg , and <150/<100 mmHg by tomorrow am - cards consulted Lines : Nelson: OG: Nutrition: po VTE Prophylaxis: scd Stress Ulcer Prophylaxis: na Glycemic Control: + Plans in collaboration with bedside consultants and IM MDs. Discussed with RN to reach out if any questions or concerns A total of 25 minutes of critical care time was devoted to this patient today, required to treat and/or prevent further deterioration of critical care condition ( as above ) . JANICE ANDERSEN MD Feb 20, 2021 15:52
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
--- NOTE | 2021-02-20 16:07 | Diagnostic Imaging Report ---
PROCEDURE: MR imaging of the brain without contrast. TECHNIQUE: Multiplanar, multisequence MR imaging of the brain was performed without contrast. DATE: February 20, 2021. COMPARISON: CT head February 20, 2021. HISTORY: 65-year-old male, left-sided weakness. FINDINGS: There is diffusion restriction involving the right frontal lobe, consistent with acute infarct. There are T2 and FLAIR hyperintense signal changes in this distribution, consistent with an acute infarct which is not within a few hours of age. There is no additional site of diffusion restriction. There are no areas of abnormal intracranial susceptibility. There is mild generalized prominence of the ventricles and additional CSF spaces, consistent with mild cerebral volume loss. There are findings of encephalomalacia involving the right temporal lobe with adjacent gliosis. There is also encephalomalacia involving the right parietal lobe with adjacent gliosis and also the anterior and inferior aspect of the right frontal lobe. There is no abnormal extra axial fluid collection. There is no evidence to suggest acute intracranial hemorrhage. There is no mass effect or midline shift. The right globe appears absent. The visualized portions of the paranasal sinuses, mastoid air cells, and middle ears are well-aerated bilaterally. IMPRESSION: 1. Acute infarct involving the right frontal lobe which is not within a few hours of age. 2. Extensive areas of encephalomalacia in the right cerebral hemisphere as above. 3. Mild cerebral volume loss. Dictated by: Dictated on workstation # [id number]
[2021-02-20 16:08] VITALS: BP 170/92
[2021-02-20] MEDS ORDERED: RT-ALBUTEROL SULF 2.5 MG/3 ML PRE-MIX VIAL INH PRN (16:15)
[2021-02-20] MEDS ORDERED: CARB200T6 PO (16:19)
[2021-02-20] MEDS ORDERED: CETI10TA17 PO (16:19)
[2021-02-20] MEDS ORDERED: ATOR40TA70 PO (16:19)
[2021-02-20] MEDS ORDERED: GABA300C PO (16:19)
[2021-02-20] MEDS ORDERED: METO-333 PO (16:19)
[2021-02-20] MEDS ORDERED: HYDR-3817 PO (16:19)
--- NOTE | 2021-02-20 17:41 | Diagnostic Imaging Report ---
CLINICAL INDICATION: Patient with left-sided weakness. Patient with hypertensive urgency. COMPARISON: MRI of the brain without contrast dated 02/20/2021. EXAM: Real-time carotid Doppler duplex imaging is performed bilaterally. Peak systolic velocity, ICA/CCA peak systolic ratio, spectral analysis, and vascular morphology are studied. FINDINGS: ARTERY VELOCITY Right Left CCA 1.10 m/s 0.76 m/s ICA 0.42 m/s 1.13 m/s ECA 1.35 m/s 1.25 m/s ICA/CCA 0.38 1.32 VERT.ART Antegrade not visualized There is bilateral carotid artery atherosclerotic disease with the right cervical ICA affected the most. There is slightly low velocity within the proximal cervical right ICA of 0.42 m/s. The mid and distal cervical right ICA was unable to be visualized as the proximal area and occlusion should be excluded. IMPRESSION: 1: The mid and distal cervical right ICA is unable to be visualized on this exam and occlusion should be excluded. CT angiogram of the head and neck is suggested for further evaluation. 2: The left vertebral artery also was not visualized on this exam. Unknown if it is occluded or small in caliber. This should be further evaluated with CT angiogram. 3: Otherwise, there is no significant grayscale or Doppler evidence of stenosis. Dictated by: Dictated on workstation # [id number]
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
--- NOTE | 2021-02-20 17:59 | History & Physical-Hospitalist ---
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 It started abruptly and required help with buttoning his shirt and doing anything with his left hand. He continued to go to work as usual. Patient was found to have a normal CT scan stroke protocol but very hypertensive so he was placed in cardiac stepdown with cardiology consultation and MRI was performed revealing a subacute infarct consistent with stroke. Risk ratification will be performed. He does continue to smoke. Daughter and are at the bedside. No dysphagia. Source: patient, family, RN/MD Exam Limitations: no limitations Date Seen 02/20/21 Time Seen by a Provider: 18:15 Attending Physician Zelda Navarro DO PCP Antonio Herring MD Referring Physician Date of Admission Feb 20, 2021 at 12:25 Home Medications & Allergies Home Medications Reviewed patient Home Medication Reconciliation performed by pharmacy medication reconciliations lab technician and/or nursing. Patients Allergies have been reviewed. Allergies Allergies Coded Allergies Penicillins (Verified Allergy, Unknown, 09/28/20) Past Ipiardh-Xkvqkl-Jqfiae Hx Patient Social History Marrital Status: Employed/Student: employed Tobacco Use?: Yes Tobacco type used: Cigarettes Smoking Status: Current Everyday Smoker Use of E-Cig and/or Vaping dev: No Substance use?: Yes Substance type: Marijuana Substance frequency: Daily Alcohol Use?: No Pt feels they are or have been: No Immunizations Up To Date Tetanus Booster (TDap): Unknown Seasonal Allergies Seasonal Allergies: No Current Status Advance Directives: No Communicates: Verbally Primary Language: Hebrew Preferred Spoken Language: Hebrew Is interpretation needed?: No Sensory deficits: Vision impairment Past Medical History High Cholesterol, Hypertension Seizure Disorder, Traumatic Brain Injury Eye Injury Loss of Vision: Right Family Medical History No Pertinent Family Hx Review of Systems Constitutional: see HPI EENTM: no symptoms reported Respiratory: no symptoms reported Cardiovascular: no symptoms reported Gastrointestinal: no symptoms reported Genitourinary: no symptoms reported Musculoskeletal: back pain, joint pain Skin: no symptoms reported Psychiatric/Neurological: Weakness Physical Exam Physical Exam Vital Signs Vital Signs - First Documented 02/20/21 02/20/21 10:37 16:08 Temp 36.7 Pulse 68 Resp 18 B/P (MAP) 170/92 (118) Pulse Ox 98 O2 Delivery Room Air FiO2 21 Capillary Refill : Less Than 3 Seconds Height, Weight, BMI Height: '" Weight: lbs. oz. kg; 32.00 BMI Method: General Appearance: Anxious, Chronically ill, Obese Eyes: Right Eye Normal Inspection, Right Eye PERRL HEENT: PERRL/EOMI, Normal ENT Inspection, Pharynx Normal, Moist Mucous Membranes Neck: Full Range of Motion, Normal Inspection, Non Tender Respiratory: Chest Non Tender, Lungs Clear, Normal Breath Sounds, No Accessory Muscle Use, No Respiratory Distress Cardiovascular: Regular Rate, Rhythm, No Edema, No Gallop, No JVD, No Murmur, Normal Peripheral Pulses Gastrointestinal: Normal Bowel Sounds, No Organomegaly, No Pulsatile Mass, Non Tender, Soft Back: Normal Inspection, No CVA Tenderness, No Vertebral Tenderness Extremity: Normal Capillary Refill, Normal Inspection, Normal Range of Motion, Non Tender, No Calf Tenderness, No Pedal Edema Neurologic/Psychiatric: Alert, Oriented x3, Normal Mood/Affect, Motor Weakness (Left arm weakness and left hand weakness 2/5) Skin: Normal Color, Warm/Dry Lymphatic: No Adenopathy Results Results/Procedures Labs Laboratory Tests 02/20/21 10:43 02/21/21 04:02 Patient resulted labs reviewed. Assessment/Plan Admission Diagnosis Assessment: Subacute stroke with left-sided weakness History of traumatic brain injury Seizure disorder Hypertension Hyperlipidemia Current smoker anxiety Marijuana use Plan: Cardiology consultation Risk ratification Cardiology appreciated Inpatient rehab eval PT and OT Statin Aspirin Echo Admission Status: Inpatient Order (span 2 midnights) Reason for Inpatient Admission: CVA Diagnosis/Problems Diagnosis/Problems (1) CVA (cerebral vascular accident) (2) Left-sided weakness (3) Hypertensive urgency (4) Smoker (5) History of traumatic brain injury (6) Seizure disorder (7) Hyperlipidemia ZELDA NAVARRO DO Feb 20, 2021 17:59
[2021-02-20] MEDS ORDERED: ACETAMINOPHEN 500 MG TAB (TYLENOL) PO PRN (18:30)
[2021-02-20] MEDS ORDERED: CALCIUM CARBONATE 500 MG (TUMS) TAB.CHEW PO PRN (18:30)
[2021-02-20] MEDS ORDERED: diphenhydrAMINE 25 MG TAB (BENADRYL) PO PRN (18:30)
[2021-02-20] MEDS ORDERED: DOCUSATE SODIUM 100 MG (COLACE) CAP PO PRN (18:30)
[2021-02-20] MEDS ORDERED: fentaNYL INJ 100 MCG/2 ML AMP IVP PRN (18:30)
[2021-02-20] MEDS ORDERED: LORazepam 0.5 MG (ATIVAN) TABLET PO PRN (18:30)
[2021-02-20] MEDS ORDERED: HYDROcodone/APAP 5 MG/325 MG (LORTAB) TAB PO PRN (18:30)
[2021-02-20] MEDS ORDERED: MELATONIN 3 MG TABLET PO PRN (18:30)
[2021-02-20] MEDS ORDERED: LOPERAMIDE 2 MG (IMODIUM) TABLET PO PRN (18:30)
[2021-02-20] MEDS: ENOXAPARIN 40 MG/0.4 ML (LOVENOX) SYR SC SCH (18:38)
[2021-02-20] MEDS: polyethylene glycoL POWDER 17 GM (MIRALAX) PACK PO SCH (20:31)
[2021-02-20] MEDS: CATHETER FLUSH 10 ML SYR IV SCH (21:01)
[2021-02-20] MEDS: hydrALAZINE (APRESOLINE) 25 MG TAB PO SCH (21:01)
[2021-02-20] MEDS: doxAzosin 4 MG (CARDURA) TAB PO SCH (21:05)
[2021-02-21 04:21] LABS: BASOPHILS % (AUTO) 0 % (0-10); EOSINOPHILS # (AUTO) 0.1 10^3/uL (0.0-0.3); EOSINOPHILS % (AUTO) 2 % (0-10); HEMATOCRIT 49 % (40-54); HEMOGLOBIN 16.1 g/dL (13.3-17.7); LYMPHOCYTES # (AUTO) 1.8 10^3/uL (1.0-4.0); LYMPHOCYTES % (AUTO) 20 % (12-44); MEAN CORPUSCULAR HEMOGLOBIN 28 pg (25-34); MEAN CORPUSCULAR HGB CONC 33 g/dL (32-36); MEAN CORPUSCULAR VOLUME 85 fL (80-99); MEAN PLATELET VOLUME 10.8 fL (9.0-12.2); MONOCYTES # (AUTO) 0.7 10^3/uL (0.0-1.0); MONOCYTES % (AUTO) 8 % (0-12); NEUTROPHILS # (AUTO) 6.1 10^3/uL (1.8-7.8); NEUTROPHILS % (AUTO) 69 % (42-75); PLATELET COUNT 160 10^3/uL (130-400); WHITE BLOOD COUNT 8.8 10^3/uL (4.3-11.0)
[2021-02-21 04:36] LABS: CHLORIDE 104 MMOL/L (98-107); POTASSIUM 3.9 MMOL/L (3.6-5.0); SODIUM 136 MMOL/L (135-145)
[2021-02-21 04:38] LABS: CALCIUM 8.7 MG/DL (8.5-10.1); TRIGLYCERIDES 254 MG/DL (<150); VLDL CHOLESTEROL 51 MG/DL (5-40)
[2021-02-21 04:39] LABS: GLUCOSE 124 MG/DL (70-105)
[2021-02-21 04:40] LABS: CARBON DIOXIDE 20 MMOL/L (21-32)
[2021-02-21 04:42] LABS: GFR ESTIMATED > 60; PHOSPHORUS 3.5 MG/DL (2.3-4.7)
[2021-02-21 04:43] LABS: BUN/CREATININE RATIO 14; CHOLESTEROL 198 MG/DL (< 200)
[2021-02-21 04:45] LABS: HDL CHOLESTEROL 36 MG/DL (40-60); MAGNESIUM 1.9 MG/DL (1.6-2.4)
[2021-02-21] MEDS ORDERED: MAGNESIUM 1 GM/100 ML IVPB 100 ML IV SCH (06:00)
[2021-02-21] MEDS ORDERED: KCL 20 MEQ TAB (K-DUR) PO SCH (06:00)
[2021-02-21] MEDS ORDERED: POTASSIUM CL 10MEQ/50ML IVPB 50 ML IV SCH (06:00)
[2021-02-21] MEDS: hydrALAZINE (APRESOLINE) 25 MG TAB PO SCH ×3 (06:14→21:53)
[2021-02-21] MEDS: doxAzosin 4 MG (CARDURA) TAB PO SCH ×3 (06:14→21:53)
[2021-02-21] MEDS: CATHETER FLUSH 10 ML SYR IV SCH ×3 (06:27→21:54)
[2021-02-21] MEDS ORDERED: HYDROcodone/APAP 7.5 MG/325 MG (LORTAB, LORCET PLUS) TABLET PO PRN (06:30)
--- NOTE | 2021-02-21 06:39 | Progress Note - Hospitalist ---
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 It started abruptly and required help with buttoning his shirt and doing anything with his left hand. He continued to go to work as usual. Patient was found to have a normal CT scan stroke protocol but very hypertensive so he was placed in cardiac stepdown with cardiology consultation and MRI was performed revealing a subacute infarct consistent with stroke. Risk ratification will be performed. He does continue to smoke. Daughter and are at the bedside. No dysphagia. Subjective/Events-last exam Pt doing really well Left arm weakness is a significant problem Rehab eval initiated Transferring to 4th floor CT angiogram of the head and neck will be initiated due to unvisualized carotid arteries on carotid ultrasound BP is much improved today Updated and daughter Review of Systems General: Fatigue Neurological: Weakness Objective Exam Vital Signs Vital Signs Date Time Temp Pulse Resp B/P (MAP) Pulse Ox O2 Delivery O2 Flow Rate FiO2 02/22/21 04:45 36.4 86 18 129/78 (95) 96 Room Air 02/20/21 16:08 21 Capillary Refill : Less Than 3 Seconds General Appearance: No Apparent Distress, WD/WN, Chronically ill Respiratory: Lungs Clear Cardiovascular: Regular Rate, Rhythm Neurologic/Psychiatric: Alert, Oriented x3, Motor Weakness (Left upper extremity) Results/Procedures Lab Patient resulted labs reviewed. Assessment/Plan Assessment and Plan Assess & Plan/Chief Complaint Assessment: Subacute stroke with left-sided weakness not a TPA candidate due to 3-days of symptoms before admitted History of traumatic brain injury Seizure disorder Hypertension Hyperlipidemia Current smoker anxiety Marijuana use Plan: Cardiology consultation Risk ratification Cardiology appreciated Inpatient rehab eval PT and OT Statin Aspirin Echo 02/21/2021: PT and OT CT angiogram of the head and neck Inpatient rehab Diagnosis/Problems Diagnosis/Problems (1) CVA (cerebral vascular accident) (2) Left-sided weakness (3) Hypertensive urgency (4) Smoker (5) History of traumatic brain injury (6) Seizure disorder (7) Hyperlipidemia JOHN CRUZ DO Feb 21, 2021 06:39
[2021-02-21] MEDS: polyethylene glycoL POWDER 17 GM (MIRALAX) PACK PO SCH ×2 (07:50→20:12)
[2021-02-21] MEDS: LORATADINE (CLARITIN) 10 MG TAB PO SCH (08:57)
[2021-02-21] MEDS: meTOprolol TARTRATE 25 MG (LOPRESSOR) TABLET PO SCH ×2 (08:57→20:11)
[2021-02-21] MEDS: ASPIRIN 81 MG CHEW (CHILDREN'S ASA) PO SCH (08:57)
[2021-02-21] MEDS: amLODIPine 10 MG (NORVASC) TAB PO SCH (08:57)
[2021-02-21] MEDS ORDERED: ASPIRIN 81 MG CHEW (CHILDREN'S ASA) PO SCH (09:00)
[2021-02-21] MEDS: NICOTINE 21 MG (NICODERM) PATCH TD SCH (10:16)
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
[2021-02-21 11:05] VITALS: BP 117/67
--- NOTE | 2021-02-21 11:09 | Physical Therapy Evaluation ---
PT Evaluation-General Medical Diagnosis Admission Date Feb 20, 2021 at 18:33 Medical Diagnosis: HTN urgency/left UE weakness Onset Date: Feb 20, 2021 Therapy Diagnosis Therapy Diagnosis: debility Precautions Precautions/Isolations: Seizure, Standard Precautions Referral Physician: Ramon Reason for Referral: Evaluation/Treatment Medical History Pertinent Medical History: HTN, Smoking, TBI Additional Medical History seizure Current History patient ambulated into the ER room with left UE weakness/numbness x 3 days Reviewed History: Yes Social History Home: Single Level Current Living Status: Spouse Prior Prior Level of Function SCALE: Activities may be completed with or without assistive devices. 9-Jlpeuaocll-sollmyo completes the activity by him/herself with no assistance from a helper. 5-Set-up or Clean-up Assistance-helper sets up or cleans up; patient completes activity. [place] assists only prior to or following the activity. 4-Supervision or Touching Assistance-helper provides verbal cues and/or touching/steadying and/or contact guard assistance as patient completes activity. Assistance may be provided throughout the activity or intermittently. 3-Partial/Moderate Assistance-helper does LESS THAN HALF the effort. [place] lifts, holds or supports trunk or limbs, but provides less than half the effort. 2-Substantial/Maximal Assistance-helper does MORE THAN HALF the effort. [place] lifts or holds trunk or limbs and provides more than half the effort. 7-Fahuedcgv-hafyfy does ALL the effort. Patient does none of the effort to complete the activity. Or, the assistance of 2 or more helpers is required for the patient to complete the activity. If activity was not attempted, code reason: 7-Patient Refused. 9-Not Applicable-not attempted and the patient did not perform the activity before the current illness, exacerbation or injury. 10-Not Attempted due to Environmental Limitations-(lack of equipment, weather restraints, etc.). 88-Not Attempted due to Medical Conditions or Safety Concerns. Bed Mobility: 6 Transfers (B,C,W/C): 6 Gait: 6 Stairs: 6 Indoor Mobility (Ambulation): Independent Stairs: Independent Prior Devices Use: None PT Evaluation-Current Subjective Patient reports he is independent and the only thing that is bothering him is his left arm. Agrees to PT. Objective Patient Orientation: Normal For Age ROM/Strength ROM Lower Extremities bilateral LE WFL Strength Lower Extremities 5/5 grossly bilateral LE Integumentary/Posture Bowel Incontinence: No Bladder Incontinence: No Posture WFL Neuromuscular (Tone, Coordination, Reflexes) grossly intact Sensory Vision: Wears Glasses Hearing: Functional Transfers Roll Left to Right (QC): 6 Sit to Lying (QC): 6 Lying to Sitting/Side of Bed(Q: 6 Sit to Stand (QC): 6 Chair/Iul-qx-Ybesx Xfer(QC): 6 Gait Does the Patient Walk?: Yes Mode of Locomotion: Walk Anticipated Mode of Locomotion: Walk Walk 10 feet (QC): 6 Walk 50 ft with 2 Turns(QC): 6 Distance: 50' in room Gait Assistive Device: None Comments/Gait Description safe and functional with no deviation Balance Sitting Static: Normal Sitting Dynamic: Normal Standing Static: Normal Standing Dynamic: Normal Assessment/Needs 65 y.o. male, is currently independent with all gross motor skills and does not require skilled therapy intervention. Rehab Potential: Fair PT Plan Treatment/Plan Treatment Plan: Discontinue PT, goals met Treatment Duration: Feb 21, 2021 Frequency: 1 time per week Estimated Hrs Per Day: .25 hour per day Patient and/or Family Agrees t: Yes Discharge Recommendations Therapy Discharge Recommendati: Home & Family Time/GCodes Time In: 940 Time Out: 951 Total Billed Treatment Time: 11 Total Billed Treatment 1 visit EVLow 11 min HEATHER ARCOS PT Feb 21, 2021 11:09
--- NOTE | 2021-02-21 12:14 | Occupational Therapy Eval ---
OT Evaluation-General/PLF Medical Diagnosis Admission Date Feb 20, 2021 at 18:33 Medical Diagnosis: HTN urgency/left UE weakness Onset Date: Feb 20, 2021 Therapy Diagnosis Therapy Diagnosis: weakness, decreased ADL status Precautions Precautions/Isolations: Seizure, Standard Precautions Referral Physician: Ramon Perez Reason: Evaluation/Treatment Medical History Pertinent Medical History: HTN, Smoking, TBI Additional Medical History seizure, eye injury (loss of vision R eye) Current History ED due to LUE weakness x3 days, MRI consistent with CVA Social History Home: Single Level Current Living Status: Spouse ADL-Prior Level of Function SCALE: Activities may be completed with or without assistive devices. 8-Gsgdfseqeq-uwkxlut completes the activity by him/herself with no assistance from a helper. 5-Set-up or Clean-up Assistance-helper sets up or cleans up; patient completes activity. [place] assists only prior to or following the activity. 4-Supervision or Touching Assistance-helper provides verbal cues and/or touching/steadying and/or contact guard assistance as patient completes activity. Assistance may be provided throughout the activity or intermittently. 3-Partial/Moderate Assistance-helper does LESS THAN HALF the effort. [place] lifts, holds or supports trunk or limbs, but provides less than half the effort. 2-Substantial/Maximal Assistance-helper does MORE THAN HALF the effort. [place] lifts or holds trunk or limbs and provides more than half the effort. 6-Dihfvtuhn-wefmid does ALL the effort. Patient does none of the effort to complete the activity. Or, the assistance of 2 or more helpers is required for the patient to complete the activity. If activity was not attempted, code reason: 7-Patient Refused. 9-Not Applicable-not attempted and the patient did not perform the activity before the current illness, exacerbation or injury. 10-Not Attempted due to Environmental Limitations-(lack of equipment, weather restraints, etc.). 88-Not Attempted due to Medical Conditions or Safety Concerns. ADL PLOF Comments Pt reports IND with ADLs and functional mobility at PLOF, no AD/AE Self Care: Independent Functional Cognition: Independent OT Current Status Subjective Pt laying in bed, agreeable to OT evaluation/tx. Pt states he wants to get his LUE working again. Pt reports nauseous feeling after sitting up in chair, OT notified nurse. Mental Status/Objective Patient Orientation: Person, Place, Time, Situation Current Glasses/Contacts: Yes Hand Dominance: Right Upper Extremity ROM RUE WFL LUE shoulder flexion to approx 140 degrees, elbow/wrist/hand WFL (slower movements) Upper Extremity Coordination Decreased LUE Upper Extremity Sensation tingling in LUE Upper Extremity Strength RUE WFL. LUE grossly 3/5 ADL-Treatment Eating (QC): 6 (IND using RUE) Oral Hygiene (QC): 5 (based on clincial judgement.) Toileting Hygiene (QC): 6 (Pt completed toileting IND prior to OT arrival) Other Treatments Pt laying in bed, just returned from bathroom. OT educated pt on purpose and benefit of OT, he verbalized understanding. Pt provided information about PLOF and home set up, and participated in UE screen. Pt transferred supine to sit EOB with CGA, stood at EOB and took a couple side steps up towards HOB independently, then sat back on EOB and transferred supine IND. OT educated pt on UE exercise in order to increase functional use of LUE, pt completed x10 reps each of the following: shoulder flexion, elbow flexion/extension, wrist flexion/extension and [employer] squeeze with wash cloth. OT educated pt on benefits of outpatient OT upon discharge to continue focusing on LUE function, he verbalized understanding. Post tx, pt laying in bed, call light in reach and all needs met. Education OT Patient Education: Correct positioning, Disease process, Modified ADL techn iques, Progress toward Goal/Update tx plan, Purpose of tx/functional activities, Rehab process Teaching Recipient: Patient Teaching Methods: Discussion Response to Teaching: Verbalize Understanding OT Care Home Goals Care Home Goals Time Frame: Mar 03, 2021 Eating (QC): 6 Oral Hygiene (QC): 6 Toileting Hygiene (QC): 6 Shower/Bathe Self (QC): 6 Upper Body Dressing (QC): 6 Lower Body Dressing (QC): 6 On/Off Footwear (QC): 6 Additional Goals: 1-Demonstrate ADL Tasks, 2-Verbalize Understanding, 3- ImproveStrength/Sarah 1=Demonstrate adherence to instructed precautions during ADL tasks. 2=Patient will verbalize/demonstrate understanding of assistive devices/modifications for ADL. 3=Patient will improve strength/tolerance for activity to enable patient to perform ADL's. OT Education/Plan Problem List/Assessment Assessment: Decreased Activ Tolerance, Decreased UE Strength, Impaired I ADL's, Impaired Self-Care Skills, Restricted Funct UE ROM Pt would benefit from short term skilled OT services in order to increase functional use of LUE to increase independence with ADLs. Discharge Recommendations Plan/Recommendations: Continue POC Therapy Discharge Recommendati: Post Acute OT (outpatient OT) Treatment Plan/Plan of Care Treatment,Training & Education: Yes Patient would benefit from OT for education, treatment and training to promote independence in ADL's, mobility, safety and/or upper extremity function for ADL's. Plan of Care: ADL Retraining, Functional Mobility, UE Funct Exercise/Act Treatment Duration: Mar 03, 2021 Frequency: 5 times per week Estimated Hrs Per Day: .25 hour per day Rehab Potential: Fair Time/GCodes Start Time: 11:50 Stop Time: 12:03 Total Time Billed (hr/min): 13 Billed Treatment Time 1, RACHEL QUIROGA OT Feb 21, 2021 12:14
[2021-02-21] MEDS ORDERED: IOHEXOL 350 MG/ML 100 ML (OMNIPAQUE 350) VIAL IV ONE (13:30)
[2021-02-21] MEDS ORDERED: HOLD METFORMIN - RECEIVED CONTRAST 20 ML VIAL IV SCH (13:30)
[2021-02-21] MEDS ORDERED: NS 100 ML (IVPB) BAG IV ONE (13:30)
--- NOTE | 2021-02-21 14:36 | Diagnostic Imaging Report ---
PROCEDURE: CT angiography of the head and CT angiography of the neck with and without contrast. TECHNIQUE: Contiguous noncontrast images were obtained from the skull base through the vertex. After intravenous contrast administration, helical CT angiography of the neck was performed. Source data was reformatted into 3D MIP projections. Delayed post contrast acquisition was also obtained. Auto Exposure Controls were utilized during the CT exam to meet ALARA standards for radiation dose reduction. INDICATION: Left arm weakness. Stroke seen on prior brain MRI. Comparison: MRI brain on 02/20/2021. FINDINGS: CTA Neck: The visualized portions of the aortic arch demonstrate no evidence of aneurysm or dissection. There is conventional branching pattern of the great vessels of the aorta. The brachiocephalic artery is normal in course and caliber. The right and left common carotid origins are unremarkable. The origin of the left subclavian artery is patent. The common carotid arteries have a normal course. There is calcified atherosclerotic plaque in the bilateral carotid bulbs and proximal internal carotid arteries. There is complete occlusion of the proximal right ICA just after its origin. The occlusion extends to the right ICA terminus. The left ICA demonstrates no evidence of hemodynamically significance stenosis. No evidence of dissection in the carotid systems. The external carotid arteries are patent and unremarkable. The right vertebral artery is dominant. The origin of the right vertebral artery is seen and is unremarkable. The origin of the left vertebral artery is visualized off the aortic arch. There is no focal stenosis seen within the neck. There is no dissection. The vertebral arteries are well visualized to up to the level of the basilar artery. The osseous structures of the cervical spine are unremarkable. Included views through the lung apices demonstrate no focal consolidation. CTA brain: Occlusion of the intracranial portions of the right ICA is seen. The left ICA is patent. There is collateral flow to the right MCA and OMKAR. A small amount of collateral flow is also supplied to the right [place] which demonstrates origin. There is asymmetric diminutive appearance of the right MCA relative to the left. The bilateral OMKAR are symmetric without evidence of focal stenosis. The left [place] is patent. No evidence of aneurysm the [place]. In the posterior circulation, both of the vertebral arteries demonstrate normal opacification. The vertebral arteries are codominant. Both the right and left PICA arteries are identified. The basilar artery is normal in course and caliber. The terminal branch vessels including the superior cerebellar arteries unremarkable. CT head: Focal areas of evolving ischemia are visualized in the right frontal lobe. A large area of encephalomalacia is seen in the right temporal and frontal lobes with right sided cranioplasty changes noted. No evidence of acute hemorrhage. No midline shift or mass effect. The visualized paranasal sinuses are clear. The right globe is absent. IMPRESSION: 1. Complete occlusion of the right ICA just distal to its origin extending to the right ICA terminus. Collateral flow is seen supplying the right OMKAR, MCA, and origin of the right [place]. The right MCA particular as a diminutive appearance relative to the left. 2. No evidence of large vessel occlusion in the [place]. No aneurysm is seen. 3. No focal stenosis or dissection the bilateral vertebral arteries. 4. Evolving areas of acute ischemia in the right frontal lobe. No hemorrhagic conversion or mass effect. 5. Redemonstration of encephalomalacia in the right temporal and frontal lobes. Dictated by: Dictated on workstation # [id number]
[2021-02-21 16:00] VITALS: BP 163/96
[2021-02-21] MEDS: ENOXAPARIN 40 MG/0.4 ML (LOVENOX) SYR SC SCH (17:35)
[2021-02-21] MEDS ORDERED: carBAMazepine 200 MG (TEGretol) TAB PO SCH (18:00)
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
[2021-02-21 19:30] VITALS: BP 157/91
[2021-02-21] MEDS ORDERED: GABAPENTIN 300 MG (NEURONTIN) CAP PO SCH (21:00)
[2021-02-21 23:30] VITALS: BP 104/75
[2021-02-22 04:45] VITALS: BP 129/78
[2021-02-22] MEDS: doxAzosin 4 MG (CARDURA) TAB PO SCH ×2 (05:43→13:22)
[2021-02-22] MEDS: CATHETER FLUSH 10 ML SYR IV SCH ×2 (05:46→13:22)
[2021-02-22] MEDS: hydrALAZINE (APRESOLINE) 25 MG TAB PO SCH ×2 (05:46→13:22)
[2021-02-22 06:15] LABS: BASOPHILS % (AUTO) 0 % (0-10); EOSINOPHILS # (AUTO) 0.1 10^3/uL (0.0-0.3); EOSINOPHILS % (AUTO) 1 % (0-10); HEMATOCRIT 48 % (40-54); HEMOGLOBIN 15.5 g/dL (13.3-17.7); LYMPHOCYTES # (AUTO) 1.4 10^3/uL (1.0-4.0); LYMPHOCYTES % (AUTO) 17 % (12-44); MEAN CORPUSCULAR HEMOGLOBIN 27 pg (25-34); MEAN CORPUSCULAR HGB CONC 32 g/dL (32-36); MEAN CORPUSCULAR VOLUME 85 fL (80-99); MEAN PLATELET VOLUME 10.6 fL (9.0-12.2); MONOCYTES # (AUTO) 0.7 10^3/uL (0.0-1.0); MONOCYTES % (AUTO) 8 % (0-12); NEUTROPHILS # (AUTO) 5.8 10^3/uL (1.8-7.8); NEUTROPHILS % (AUTO) 73 % (42-75); PLATELET COUNT 157 10^3/uL (130-400)
[2021-02-22 06:28] LABS: ALBUMIN 3.8 GM/DL (3.2-4.5); CHLORIDE 103 MMOL/L (98-107); POTASSIUM 3.8 MMOL/L (3.6-5.0); SODIUM 136 MMOL/L (135-145)
[2021-02-22 06:31] LABS: GLUCOSE 121 MG/DL (70-105); TOTAL PROTEIN 6.9 GM/DL (6.4-8.2)
[2021-02-22 06:32] LABS: CARBON DIOXIDE 23 MMOL/L (21-32)
[2021-02-22 06:33] LABS: BILIRUBIN,TOTAL 0.9 MG/DL (0.1-1.0)
[2021-02-22 06:34] LABS: ALKALINE PHOSPHATASE 72 U/L (40-136)
[2021-02-22 06:35] LABS: CREATININE SERUM 0.85 MG/DL (0.60-1.30); GFR ESTIMATED > 60
[2021-02-22 06:36] LABS: BUN/CREATININE RATIO 14
[2021-02-22 06:37] LABS: ALANINE AMINOTRANSFERASE 25 U/L (0-55)
[2021-02-22 08:16] VITALS: BP 155/81
[2021-02-22] MEDS: NICOTINE 21 MG (NICODERM) PATCH TD SCH (08:20)
[2021-02-22] MEDS: ASPIRIN 81 MG CHEW (CHILDREN'S ASA) PO SCH (08:20)
[2021-02-22] MEDS: meTOprolol TARTRATE 25 MG (LOPRESSOR) TABLET PO SCH (08:20)
[2021-02-22] MEDS: amLODIPine 10 MG (NORVASC) TAB PO SCH (08:20)
[2021-02-22] MEDS: LORATADINE (CLARITIN) 10 MG TAB PO SCH (08:20)
[2021-02-22] MEDS: polyethylene glycoL POWDER 17 GM (MIRALAX) PACK PO SCH (08:23)
[2021-02-22] MEDS ORDERED: NICOTINE PATCH REMOVAL TP SCH (08:59)
--- NOTE | 2021-02-22 10:48 | Occupational Ther Daily Note ---
OT Current Status-Daily Note Subjective Pt seated in recliner, states he feels like his LUE is improving. ADL-Treatment Therapy Code Descriptions/Definitions Functional Bennett Measure: 0=Not Assessed/NA 4=Minimal Assistance 1=Total Assistance 5=Supervision or Setup 2=Maximal Assistance 6=Modified Bennett 3=Moderate Assistance 7=Complete IndependenceSCALE: Activities may be completed with or without assistive devices. 1-Pmncarqexl-phzdtum completes the activity by him/herself with no assistance from a helper. 5-Set-up or Clean-up Assistance-helper sets up or cleans up; patient completes activity. [place] assists only prior to or following the activity. 4-Supervision or Touching Assistance-helper provides verbal cues and/or reddy socrates/steadying and/or contact guard assistance as patient completes activity. Assistance may be provided throughout the activity or intermittently. 3-Partial/Moderate Assistance-helper does LESS THAN HALF the effort. [place] lifts, holds or supports trunk or limbs, but provides less than half the effort. 2-Substantial/Maximal Assistance-helper does MORE THAN HALF the effort. [place] lifts or holds trunk or limbs and provides more than half the effort. 8-Clntoxrgn-lzzufs does ALL the effort. Patient does none of the effort to complete the activity. Or, the assistance of 2 or more helpers is required for the patient to complete the activity. If activity was not attempted, code reason: 7-Patient Refused. 9-Not Applicable-not attempted and the patient did not perform the activity before the current illness, exacerbation or injury. 10-Not Attempted due to Environmental Limitations-(lack of equipment, weather restraints, etc.). 88-Not Attempted due to Medical Conditions or Safety Concerns. Eating (QC): 6 (per pt report) Oral Hygiene (QC): 6 (per pt report) Toileting Hygiene (QC): 6 (per pt report.) Other Treatment Pt seated in recliner, agreeable to OT tx. Pt indicates his LUE seems to be improving in movement and strength. LUE MMT grossly 4/5 today (3/5 yesterday). OT tx with focus on increasing LUE strength and activity tolerance. Pt completed x25 reps shoulder flexion, elbow flexion/extension, wrist flexion/extension and local coordinator squeeze with stress ball. OT encouraged pt to continue using LUE as much as possible and continue with exercises, he verbalizes understanding. Pt declines showering at this time, as he wants to visit with doctor first. Post tx, pt seated in recliner, call light in reach and all needs met. Education OT Patient Education: Correct positioning, Energy conservation, Exercise program, Modified ADL techniques, Progress toward Goal/Update tx plan, Purpose of tx/functional activities, Rehab process Teaching Recipient: Patient Teaching Methods: Discussion Response to Teaching: Verbalize Understanding OT Detention Goals Detention Goals Time Frame: Mar 03, 2021 Eating (QC): 6 Oral Hygiene (QC): 6 Toileting Hygiene (QC): 6 Shower/Bathe Self (QC): 6 Upper Body Dressing (QC): 6 Lower Body Dressing (QC): 6 On/Off Footwear (QC): 6 Additional Goals: 1-Demonstrate ADL Tasks, 2-Verbalize Understanding, 3- ImproveStrength/Sarah 1=Demonstrate adherence to instructed precautions during ADL tasks. 2=Patient will verbalize/demonstrate understanding of assistive devices/modifications for ADL. 3=Patient will improve strength/tolerance for activity to enable patient to perform ADL's. OT Education/Plan Problem List/Assessment Assessment: Decreased Activ Tolerance, Decreased UE Strength, Impaired I ADL's Pt would benefit from short term skilled OT services in order to increase functional use of LUE to increase independence with ADLs. Discharge Recommendations Plan/Recommendations: Continue POC Treatment Plan/Plan of Care Patient would benefit from OT for education, treatment and training to promote independence in ADL's, mobility, safety and/or upper extremity function for ADL's. Plan of Care: ADL Retraining, Functional Mobility, UE Funct Exercise/Act Treatment Duration: Mar 03, 2021 Frequency: 5 times per week Estimated Hrs Per Day: .25 hour per day Rehab Potential: Fair Time/GCodes Start Time: 10:15 Stop Time: 10:23 Total Time Billed (hr/min): 8 Billed Treatment Time 1, EX RACHEL LOZADA OT Feb 22, 2021 10:48
[2021-02-22] MEDS ORDERED: DOXA4TAB2 PO (11:11)
[2021-02-22] MEDS ORDERED: NICO1PAT34 TD (11:11)
[2021-02-22] MEDS ORDERED: ASPI-1238 PO (11:11)
[2021-02-22] MEDS ORDERED: AMLO-251 PO (11:11)
[2021-02-22] MEDS ORDERED: HYDR-3923 PO (11:11)
[2021-02-22] MEDS ORDERED: ALBU2.5V4 INH (11:11)
[2021-02-22] MEDS ORDERED: ATOR80TA76 PO (11:11)
--- NOTE | 2021-02-22 11:14 | Discharge Summary ---
Discharge Summary Hospital Course Was the Problem List Reviewed?: Yes Problems/Dx: (1) CVA (cerebral vascular accident) (2) Left-sided weakness (3) Hypertensive urgency (4) Smoker (5) History of traumatic brain injury (6) Seizure disorder (7) Hyperlipidemia Hospital Course Date of Admission: Feb 20, 2021 at 18:33 Admission Diagnosis : Family Physician/Provider: Antonio Herring MD Date of Discharge: 02/22/21 Discharge Diagnosis: Subacute CVA not a TPA candidate since presented 3 days after symptoms, severe hypertension acute on chronic, left arm and hand weakness residual from CVA, hyperlipidemia, smoker, carotid stenosis Hospital Course: Hospital course: Pt had a short hospital course, he was admitted for a sub-acute CVA with left- sided weakness, upper arm and hand mostly, cardiac workup ensued with echocardiogram, MRI that confirmed the stroke and carotid ultrasound that showed occlusion so CT angiogram of the neck concluded that he had collateral supply, Pt was maintained on a baby aspirin and a higher dose of statin therapy and multiple BP medications, he will have close follow-up with Dr. Carerra, Dr. Markham saw him at discharge to decide whether or not he needed an event recorder placed. Nicotine patch initiated for smoking cessation. He did not require inpatient rehab because he was independent. Labs and Pending Lab Test: Laboratory Tests 02/22/21 05:48: White Blood Count 8.0, Red Blood Count 5.66H, Hemoglobin 15.5, Hematocrit 48, Mean Corpuscular Volume 85, Mean Corpuscular Hemoglobin 27, Mean Corpuscular Hemoglobin Concent 32, Red Cell Distribution Width 12.4, Platelet Count 157, Mean Platelet Volume 10.6, Immature Granulocyte % (Auto) 0, Neutrophils (%) (A uto) 73, Lymphocytes (%) (Auto) 17, Monocytes (%) (Auto) 8, Eosinophils (%) (Auto) 1, Basophils (%) (Auto) 0, Neutrophils # (Auto) 5.8, Lymphocytes # (Auto) 1.4, Monocytes # (Auto) 0.7, Eosinophils # (Auto) 0.1, Basophils # (Auto) 0.0, Immature Granulocyte # (Auto) 0.0, Sodium Level 136, Potassium Level 3.8, Chloride Level 103, Carbon Dioxide Level 23, Anion Gap 10, Blood Urea Nitrogen 12, Creatinine 0.85, Estimat Glomerular Filtration Rate > 60, BUN/Creatinine Ratio 14, Glucose Level 121H, Calcium Level 9.0, Corrected Calcium 9.2, Total Bilirubin 0.9, Aspartate Amino Transf (AST/SGOT) 16, Alanine Aminotransferase (ALT/SGPT) 25, Alkaline Phosphatase 72, Total Protein 6.9, Albumin 3.8 Microbiology 02/20/21 MRSA Screen - Final, Complete MRSA not isolated Home Meds Active Aspirin EC (Aspirin) 81 Mg Tablet.dr 81 Mg PO DAILY Amlodipine Besylate 10 Mg Tablet 10 Mg PO DAILY Doxazosin Mesylate 4 Mg Tablet 2 Mg PO TID Hydralazine HCl 25 Mg Tablet 50 Mg PO TID Atorvastatin Calcium 80 Mg Tablet 80 Mg PO HS Albuterol Sulfate 2.5 Mg/3 Ml Vial.neb 2.5 Mg INH RTQ2H PRN Nicoderm Cq (Nicotine) 1 Each Patch.td24 21 Mg TD DAILY@0900 Reported Atorvastatin Calcium 40 Mg Tablet 40 Mg PO DAILY Neurontin (Gabapentin) 300 Mg Capsule 300-600 Mg PO HS Metoprolol Tartrate 25 Mg Tablet 25 Mg PO BID LAST FILLED 09-20-2020 #180/90 DAY SUPPLY Cetirizine HCl 10 Mg Tablet 10 Mg PO DAILY Hydrocodone-Acetamin 7.5-325 (Hydrocodone/Acetaminophen) 1 Each Tablet 1 Each PO BID PRN Carbamazepine 200 Mg Tablet 200 Mg PO Q48H AT 1800 Assessment/Pt Instructions PCP in 1 week Arranged to see Dr. Jimenez Cardiovascular Surgery at [facility] Discharge Planning: <30 minutes discharge planning Discharge Instructions Discharge Diet: No Restrictions Discharge Physical Examination Vital Signs Vital Signs Date Time Temp Pulse Resp B/P (MAP) Pulse Ox O2 Delivery O2 Flow Rate FiO2 02/22/21 08:16 35.7 90 18 155/81 (105) 96 Room Air 02/20/21 16:08 21 General Appearance: No Apparent Distress, WD/WN Respiratory: Lungs Clear Cardiovascular: Regular Rate, Rhythm Neurologic/Psychiatric: Alert, Oriented x3, Motor Weakness (Subtle weakness left arm left hand 4/5) Allergies: Coded Allergies: Penicillins (Verified Allergy, Unknown, 09/28/20) Discharge Summary Date of Admission Feb 20, 2021 at 18:33 Date of Discharge Discharge Date: Feb 22, 2021 Admission Diagnosis Assessment: Subacute stroke with left-sided weakness History of traumatic brain injury Seizure disorder Hypertension Hyperlipidemia Current smoker anxiety Marijuana use Plan: Cardiology consultation Risk ratification Cardiology appreciated Inpatient rehab eval PT and OT Statin Aspirin Echo Discharge Diagnosis Assessment: Subacute stroke with left-sided weakness not a TPA candidate due to 3-days of symptoms before admitted History of traumatic brain injury Seizure disorder Hypertension Hyperlipidemia Current smoker anxiety Marijuana use Plan: Cardiology consultation Risk ratification Cardiology appreciated Inpatient rehab eval PT and OT Statin Aspirin Echo 02/21/2021: PT and OT CT angiogram of the head and neck Inpatient rehab (1) CVA (cerebral vascular accident) (2) Left-sided weakness (3) Hypertensive urgency (4) Smoker (5) History of traumatic brain injury (6) Seizure disorder (7) Hyperlipidemia JOHN CRUZ DO Feb 22, 2021 11:14
[2021-02-22 12:30] VITALS: BP 136/89
--- NOTE | 2021-02-22 13:28 | Cardiology Progress Note ---
Progress Note-Cardiology Events since last exam Date Seen by Provider: Feb 22, 2021 Time Seen by Provider: 13:23 Events since last exam We are seeing him due to cerebrovascular accident with total occlusion of the right carotid artery. His left arm weakness is getting better. He denies any recurrent neurologic complaints. He denies chest pain, dyspnea, palpitations, syncope, or ankle edema. He hopes to quit smoking when he goes home. Vitals Last set of Vitals Signs Vital Signs 02/20/21 02/22/21 16:08 12:30 Temp 36.2 Pulse 79 Resp 20 B/P (MAP) 136/89 (105) Pulse Ox 97 O2 Delivery Room Air FiO2 21 Labs Labs Laboratory Tests 02/22/21 05:48 Exam Vital Signs Vital Signs Date Time Temp Pulse Resp B/P (MAP) Pulse Ox O2 Delivery O2 Flow Rate FiO2 02/22/21 12:30 36.2 79 20 136/89 (105) 97 Room Air 02/20/21 16:08 21 Physical Exam General: Alert. No acute distress. Eye: No xanthelasma. HENT: Normocephalic. Neck: Jugular venous pressure does not appear elevated. Respiratory: Lungs are clear to auscultation. Respirations are non-labored. Breath sounds are equal. Symmetrical chest wall expansion. Cardiovascular: Normal rate. Regular rhythm. No murmur. No gallop. No edema. Gastrointestinal: Soft. Normal bowel sounds. Skin: Warm. Dry. Neurologic: Alert and oriented to person, place, time. Cranial nerves 3-11 gross ly intact.Slight left arm weakness. Tremor of the right hand. Psychiatric: Cooperative. Appropriate mood & affect. Labs Laboratory Tests 02/22/21 05:48: White Blood Count 8.0, Red Blood Count 5.66H, Hemoglobin 15.5, Hematocrit 48, Mean Corpuscular Volume 85, Mean Corpuscular Hemoglobin 27, Mean Corpuscular Hemoglobin Concent 32, Red Cell Distribution Width 12.4, Platelet Count 157, Mean Platelet Volume 10.6, Immature Granulocyte % (Auto) 0, Neutrophils (%) (Auto) 73, Lymphocytes (%) (Auto) 17, Monocytes (%) (Auto) 8, Eosinophils (%) (Auto) 1, Basophils (%) (Auto) 0, Neutrophils # (Auto) 5.8, Lymphocytes # (Auto) 1.4, Monocytes # (Auto) 0.7, Eosinophils # (Auto) 0.1, Basophils # (Auto) 0.0, Immature Granulocyte # (Auto) 0.0, Sodium Level 136, Potassium Level 3.8, Chloride Level 103, Carbon Dioxide Level 23, Anion Gap 10, Blood Urea Nitrogen 12, Creatinine 0.85, Estimat Glomerular Filtration Rate > 60, BUN/Creatinine Ratio 14, Glucose Level 121H, Calcium Level 9.0, Corrected Calcium 9.2, Total Bilirubin 0.9, Aspartate Amino Transf (AST/SGOT) 16, Alanine Aminotransferase (ALT/SGPT) 25, Alkaline Phosphatase 72, Total Protein 6.9, Albumin 3.8 Microbiology 02/20/21 MRSA Screen - Final, Complete MRSA not isolated Diagnosis/Problems Diagnosis/Problems (1) CVA (cerebral vascular accident) Assessment & Plan: No recurrent neurologic symptoms. Given the occlusion of the right carotid artery, this raises concern about whether the carotid occlusion may have caused the stroke or cardiac had an embolic event. Typically, when there is a total occlusion of the carotid artery, medical management is recommended. It would not be unreasonable to get a vascular surgery consultation for their expert opinion. I would also suggest a 30-day event monitor to screen for atrial fibrillation. If that is unremarkable, we may want to consider an implantable loop recorder. Our office will schedule him for a follow-up visit a couple of weeks after he completes the event recorder. From a cardiac standpoint, he can be discharged home. I would continue low strength aspirin and high-dose statin medication. (2) Occlusion of right carotid artery Assessment & Plan: I suspect this may be a chronic occlusion. The primary hospital provider will refer him to a vascular surgeon. He should continue on aspirin and high-dose statin medication. Smoking cessation is of paramount importance. (3) Mixed hyperlipidemia Assessment & Plan: Goal LDL is less than 100 mg/dL. In light of the acute stroke, continue high-dose statin medication. He will need a follow-up lipid panel in 6-8 weeks. (4) Hypertensive emergency without congestive heart failure Assessment & Plan: Blood pressures have now improved. He needs to remain on antihypertensive therapy. (5) Cigarette smoker Assessment & Plan: Smoking cessation was strongly advised. KEILY BRO JR, MD Feb 22, 2021 13:28
[2021-02-22 13:50] VITALS: BP 136/89
== END 2021-02-22 13:50 | disposition home or self-care (01) | DRG 65 ==
LOC: EDUNIT# 10:33 → ER 10:37 → CSD 12:25 → ICU 13:52 → OBSVTOIN 18:33 → 4TH 02-21 11:02
PROVIDERS: ADMIT Internal Medicine; ATTEND Internal Medicine
DX: I63.9 Cerebral infarction, unspecified (principal); G81.94 Hemiplegia, unspecified affecting left nondominant side; I16.1 Hypertensive emergency; F17.210 Nicotine dependence, cigarettes, uncomplicated; G40.909 Epilepsy, unspecified, not intractable, without status epilepticus; F41.9 Anxiety disorder, unspecified; F12.90 Cannabis use, unspecified, uncomplicated; E78.00 Pure hypercholesterolemia, unspecified; I10 Essential (primary) hypertension; E78.2 Mixed hyperlipidemia; I65.21 Occlusion and stenosis of right carotid artery; Z79.82 Long term (current) use of aspirin; Z79.899 Other long term (current) drug therapy; Z87.820 Personal history of traumatic brain injury
CPT/HCPCS: 36415; 70450; 70496; 70498; 70551; 71045; 80048; 80053; 80061; 82947; 83735; 84100; 85025; 87081; 93005; 93306; 93880; 96374; G0378

== ENCOUNTER 2021-03-08 10:35 | Outpatient (RCR) | payer MEDICARE ==
[~2021-03-08 10:35] MED LIST changes: +ALBU2.5V4 INH; +AMLO-251 PO; +ATOR40TA70 PO; +ATOR80TA76 PO; +CARB200T6 PO; +CETI10TA17 PO; +DOXA4TAB2 PO; +GABA300C PO; +HYDR-3817 PO; +HYDR-3923 PO; +NICO1PAT34 TD
== END 2021-04-12 10:12 | disposition home or self-care (01) ==
PROVIDERS: ATTEND Internal Medicine
DX: I69.354 Hemiplegia and hemiparesis following cerebral infarction affecting left non-dominant side (principal); I10 Essential (primary) hypertension

== ENCOUNTER 2021-08-31 09:15 | Emergency (ER) | payer OTHER, MEDICARE ==
[~2021-08-31] VITALS: Ht 185.4 cm; Wt 104.2 kg
--- NOTE | 2021-08-31 11:28 | ED Upper Extremity ---
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 CURRENTLY WOUND IS OPEN, NOT BLEEDING AND APEARS CLEAN. Source: patient (ABIGAIL ZHU) History of Present Illness Date Seen by Provider: Aug 31, 2021 Time Seen by Provider: 11:26 Initial Comments Patient is a 66-year-old male who presents ED with a laceration to his righthand on the dorsum side of his left index finger. This occurred 2 hours ago while grinding. The contact lens curve grinder kicked back resulting in a 4-6 similar laceration. Currently on aspirin. Patient was able to control bleeding. Normal active range of motion digits. Denies of any distal numbness and tingling, obvious bone deformity. Not up-to-date on his tetanus within the past 5 years. (ABIGAIL ZHU) Allergies and Home Medications Allergies Coded Allergies: Penicillins (Verified Allergy, Unknown, 08/31/21) Patient Home Medication List Home Medication List Reviewed: Yes (ABIGAIL ZHU) Albuterol Sulfate (Albuterol Sulfate) 2.5 Mg/3 Ml Vial.neb, 2.5 MG INH RTQ2H PRN for SHORTNESS OF BREATH Prescribed by: JOHN CRUZ on 02/22/21 1111 Amlodipine Besylate (Amlodipine Besylate) 10 Mg Tablet, 10 MG PO DAILY Prescribed by: JOHN CRUZ on 02/22/21 1111 Aspirin (Aspirin EC) 81 Mg Tablet.dr, 81 MG PO DAILY Prescribed by: JOHN CRUZ on 02/22/21 1111 Atorvastatin Calcium (Atorvastatin Calcium) 80 Mg Tablet, 80 MG PO HS Prescribed by: JOHN CRUZ on 02/22/21 1111 Carbamazepine (Carbamazepine) 200 Mg Tablet, 200 MG PO Q48H AT 1800, (Reported) Entered as Reported by: KACI MONTGOMERY on 02/20/21 1619 Cephalexin (Cephalexin) 500 Mg Tablet, 500 MG PO QID Prescribed by: GINNY YEUNG on 08/31/21 1220 Cetirizine HCl (Cetirizine HCl) 10 Mg Tablet, 10 MG PO DAILY, (Reported) Entered as Reported by: KACI MONTGOMERY on 02/20/21 161 Doxazosin Mesylate (Doxazosin Mesylate) 4 Mg Tablet, 2 MG PO TID Prescribed by: JOHN CRUZ on 02/22/21 1111 Gabapentin (Neurontin) 300 Mg Capsule, 300-600 MG PO HS, (Reported) Entered as Reported by: KACI MONTGOMERY on 02/20/211618 Hydralazine HCl (Hydralazine HCl) 25 Mg Tablet, 50 MG PO TID Prescribed by: JOHN CRUZ on 02/22/21 1111 Hydrocodone/Acetaminophen (Hydrocodone-Acetamin 7.5-325) 1 Each Tablet, 1 EACH PO BID PRN for PAIN-MODERATE (5-7), (Reported) Entered as Reported by: KACI MONTGOMERY on 02/20/211618 Metoprolol Tartrate (Metoprolol Tartrate) 25 Mg Tablet, 25 MG PO BID, (Reported) Entered as Reported by: KACI MONTGOMERY on 02/20/211618 Nicotine (Nicoderm Cq) 1 Each Patch.td24, 21 MG TD DAILY@0900 Prescribed by: JOHN CRUZ on 02/22/21 1111 Review of Systems Constitutional: No chills, No dizziness, No fever EENTM: No hearing loss Respiratory: No cough, No short of breath Cardiovascular: No edema Gastrointestinal: No abdominal pain, No diarrhea, No vomiting Genitourinary: No decreased output, No dysuria, No frequency Musculoskeletal: No back pain, No joint swelling, No muscle pain, No muscle stiffness Skin: other (Laceration) (ABIGAIL ZHU) All Other Systems Reviewed Negative Unless Noted: Yes (ABIGAIL ZHU) Past Rzhhgqm-Tseqol-Wrqhcw Hx Immunizations Up To Date Tetanus Booster (TDap): Unknown (ABIGAIL ZHU) Seasonal Allergies Seasonal Allergies: No (ABIGAIL ZHU) Past Medical History Surgeries: Yes (Prosthetic right EYE, cranial surgery) Respiratory: No Cardiac: Yes High Cholesterol, Hypertension Neurological: Yes Seizure Disorder, Traumatic Brain Injury Genitourinary: No Gastrointestinal: No Musculoskeletal: No Endocrine: No HEENT: Yes Eye Injury Loss of Vision: Right Cancer: No Psychosocial: No Integumentary: No (ABIGAIL ZHU) Family Medical History No Pertinent Family Hx (ABIGAIL ZHU) Physical Exam Vital Signs Vital Signs - First Documented 08/31/21 09:29 Temp 36.0 Pulse 66 Resp 18 B/P (MAP) 135/87 (103) Pulse Ox 98 (RAIN LEWIS MD) Vital Signs Capillary Refill : (ABIGAIL ZHU) Height, Weight, BMI Height: '" Weight: lbs. oz. kg; 30.00 BMI Method: General Appearance: WD/WN, no apparent distress HEENT: PERRL/EOMI, normal ENT inspection, TMs normal Neck: non-tender, full range of motion Cardiovascular: regular rate, rhythm, no edema Respiratory: lungs clear, normal breath sounds, no respiratory distress, no accessory muscle use Gastrointestinal: normal bowel sounds, non tender, soft, no organomegaly Back: normal inspection, no CVA tenderness Hand: laceration (5 cm laceration with superficial abrasion to the right index finger on the dorsum side. Normal active range of motion of the right index finger. Tendon exposed without involvement. Bleeding controlled. Mild tenderness neurovascular intact) Neurologic/Tendon: normal sensation, normal motor functions, normal tendon functions Skin: other (5 cm laceration to right dorsum index finger proximal) (ABIGAIL ZHU) Procedures/Interventions Wound Location: Upper Extremities Other Wound Location right hand Wound Length (cm): 5 Wound's Depth, Shape: superficial, irregular, sub Q Wound Explored: contaminated Irrigated w/ Saline (ccs): 100 Betadine Prep?: Yes Anesthesia: 1% Lidocaine Volume Anesthetic (ccs): 6 Wound Debrided: minimal Suture: Vicryl Suture Size: 4-0 Number of Sutures: 11 Layer Closure?: 1 Patient tolerated procedure well. (ABIGAIL ZHU) Progress/Results/Core Measures Results/Orders Medications Given in ED Current Medications Medications Dose Ordered Sig/Gasper Route Start Time Stop Time Status Last Admin Dose Admin Diphtheria/ Tetanus/Acell Pertussis 0.5 ml ONCE ONCE IM 08/31/21 11:30 08/31/21 11:31 DC 08/31/21 12:33 0.5 ML (RAIN LEWIS MD) Vital Signs/I&O 08/31/21 08/31/21 09:29 12:40 Temp 36.0 36.0 Pulse 66 66 Resp 18 18 B/P (MAP) 135/87 (103) 135/87 Pulse Ox 98 98 (RAIN LEWIS MD) Blood Pressure Mean: 103 Departure Communication (Admissions) Patient with a laceration to the right dorsal hand along the index finger. Neurovascular intact. Normal active range of motion. Tendon is exposed. Extensive irrigation here in the ED. I was able to place 11 sutures here in the ED successfully. Laceration was rigid secondary to the trauma. Wound initially was contaminated so will discharge with Keflex prophylactically. Possible allergy to penicillin with a very small rash as a kid. Orthopedic outpatient follow-up in 7 to 10 days. X-ray was negative for fracture or obvious foreign body in that finger. Did show a longstanding foreign body in the fourth finger. Patient refused pain medication. Finger was placed in splint to allow healing. Remove sutures in 10 days. Work comp recommend rest during that duration to prevent wound dehiscence and allow healing and prevent infection. Discussed wound care. Return precaution were discussed with patient (ABIGAIL ZHU) Impression Primary Impression: LACERATION WITHOUT FOREIGN BODY OF RIGHT HAND, INIT ENCNTR Disposition: 01 HOME, SELF-CARE Condition: Stable Departure-Patient Inst. Decision time for Depature: 12:19 (ABIGAIL ZHU) Referrals: KEILY LIVINGSTON MD (PCP/Family) Primary Care Physician Patient Instructions: Laceration Repair With Stitches (DC) Add. Discharge Instructions: Remove sutures in 10 days. Keflex to prevent infection. Neosporin. Keep the finger in a splint until fully healed All discharge instructions reviewed with patient and/or family. Voiced understanding. Scripts Cephalexin (Cephalexin) 500 Mg Tablet 500 MG PO QID for 7 Days, #28 TAB Prov: ABIGAIL ZHU 08/31/21 ATTENDING PHYSICIAN NOTE: I was physically present as attending physician in the emergency department during the care of this patient, but I was not directly involved in the decision making or delivery of care for this patient. (RAIN LEWIS MD) ABIGAIL ZHU Aug 31, 2021 11:28 RAIN LEWIS MD Aug 31, 2021 20:00
[2021-08-31] MEDS ORDERED: TETANUS,DIPTH,PERTUSS P/F (BOOSTRIX) 0.5 ML VIAL IM ONE (11:30)
--- NOTE | 2021-08-31 12:02 | Diagnostic Imaging Report ---
Right hand 1138h. INDICATION: Injury to 1st finger 3 views were obtained. Reportedly the patient has suffered an injury to the 2nd digit. There may be mild soft tissue edema about the proximal phalanx of the 2nd digit but there is no fracture identified in this area. There is no radiopaque foreign body noted either. No other fracture or acute bony abnormality is appreciated. As seen on the prior right fingers exam of 11/13/2011 there is a small 2.4 mm linear foreign body in the soft tissues along the lateral aspect of the PIP joint of the 4th digit. This finding is unchanged when compared to the prior exam. 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 There is also somewhat greater narrowing of the radiocarpal joint. IMPRESSION: 1. There is no evidence for an acute bony abnormality. 2. There is a small long-standing foreign body in the soft tissues lateral to the PIP joint of the 4th digit. 3. The degenerative disease involving the triscaphe joint and to a lesser extent the radiocarpal joint has progressed since the prior study. Dictated by: Dictated on workstation # [id number]
[2021-08-31] MEDS ORDERED: CEPH500T PO (12:20)
[2021-08-31 12:40] VITALS: BP 135/87
== END 2021-08-31 12:40 | disposition home or self-care (01) ==
LOC: EDUNIT# 09:15 → ER 09:19
DX: S61.210A Laceration without foreign body of right index finger without damage to nail, initial encounter (principal); I10 Essential (primary) hypertension; E78.00 Pure hypercholesterolemia, unspecified; G40.909 Epilepsy, unspecified, not intractable, without status epilepticus; Z87.820 Personal history of traumatic brain injury; Z79.82 Long term (current) use of aspirin; Z79.899 Other long term (current) drug therapy; W29.0XXA Contact with powered kitchen appliance, initial encounter
CPT/HCPCS: 12002; 73130; 90715

== ENCOUNTER 2021-09-11 08:46 | Emergency (ER) | payer OTHER, MEDICARE ==
[~2021-09-11] VITALS: Ht 185 cm; Wt 104.2 kg
[~2021-09-11 08:46] MED LIST changes: +CEPH500T PO
[2021-09-11 09:11] VITALS: BP 123/78
== END 2021-09-11 09:11 | disposition home or self-care (01) ==
LOC: EDUNIT# 08:46 → ER 08:48
DX: Z48.02 Encounter for removal of sutures (principal)

== ENCOUNTER 2022-05-29 07:52 | Emergency (ER) | payer MEDICARE ==
[~2022-05-29] VITALS: Ht 185.5 cm; Wt 115.2 kg
[2022-05-29] MEDS ORDERED: SULF1TAB38 PO (12:08)
--- NOTE | 2022-05-29 12:08 | ED General ---
General Chief Complaint: Lower Extremity Stated Complaint: FB IN LEFT HEEL Nursing Triage Note: PT AMB TO RM 3 WITH COMPLAINT OF FB IN LEFT HEEL. STATES HE NOTICED SOMETHING ON SATURDAY. WENT TO THE CLINIC SATURDAY AND SATURDAY FOR XRAY. DOES NOT HAVE RESULTS. STATES WORSENING PAIN. UNSURE OF LAST TETANUS. POSSIBLY SIX MONTHS AGO. Source of Information: Patient Exam Limitations: No Limitations History of Present Illness Date Seen by Provider: May 29, 2022 Time Seen by Provider: 08:55 Initial Comments This 55-year-old gentleman presents to the emergency room with complaints of significant pain in the left heel, especially when walking or bearing weight. He believes he may have a foreign body stuck in his heel. He presented to the [facility] clinic and was placed on Keflex. X-rays were obtained yesterday. X-rays revealed no radiopaque foreign bodies. On exam he has a large blister about 4 cm in diameter with what appears to be a central puncture wound on the plantar surface of the left heel. Patient is up-to-date on his tetanus immunization within the last year. Allergies and Home Medications Allergies Coded Allergies: Penicillins (Verified Allergy, Unknown, 08/31/21) Patient Home Medication List Home Medication List Reviewed: Yes Albuterol Sulfate (Albuterol Sulfate) 2.5 Mg/3 Ml Vial.neb, 2.5 MG INH RTQ2H PRN for SHORTNESS OF BREATH Prescribed by: JOHN CRUZ on 02/22/21 1111 Amlodipine Besylate (Amlodipine Besylate) 10 Mg Tablet, 10 MG PO DAILY Prescribed by: JOHN CRUZ on 02/22/21 1111 Aspirin (Aspirin EC) 81 Mg Tablet.dr, 81 MG PO DAILY Prescribed by: JOHN CRUZ on 02/22/21 1111 Atorvastatin Calcium (Atorvastatin Calcium) 80 Mg Tablet, 80 MG PO HS Prescribed by: JOHN CRUZ on 02/22/21 1111 Carbamazepine (Carbamazepine) 200 Mg Tablet, 200 MG PO Q48H AT 1800, (Reported) Entered as Reported by: KACI MONTGOMERY on 02/20/21 1619 Cephalexin (Cephalexin) 500 Mg Tablet, 500 MG PO QID Prescribed by: GINNY YEUNG on 08/31/21 1220 Cetirizine HCl (Cetirizine HCl) 10 Mg Tablet, 10 MG PO DAILY, (Reported) Entered as Reported by: KACI MONTGOMERY on 02/20/21 161 Doxazosin Mesylate (Doxazosin Mesylate) 4 Mg Tablet, 2 MG PO TID Prescribed by: JOHN CRUZ on 02/22/21 1111 Gabapentin (Neurontin) 300 Mg Capsule, 300-600 MG PO HS, (Reported) Entered as Reported by: KACI MONTGOMERY on 02/20/21 161 Hydralazine HCl (Hydralazine HCl) 25 Mg Tablet, 50 MG PO TID Prescribed by: JOHN CRUZ on 02/22/21 1111 Hydrocodone/Acetaminophen (Hydrocodone-Acetamin 7.5-325) 1 Each Tablet, 1 EACH PO BID PRN for PAIN-MODERATE (5-7), (Reported) Entered as Reported by: KACI MONTGOMERY on 02/20/211618 Metoprolol Tartrate (Metoprolol Tartrate) 25 Mg Tablet, 25 MG PO BID, (Reported) Entered as Reported by: KACI MONTGOMERY on 02/20/21 161 Nicotine (Nicoderm Cq) 1 Each Patch.td24, 21 MG TD DAILY@0900 Prescribed by: JOHN CRUZ on 02/22/21 1111 Sulfamethoxazole/Trimethoprim (Bactrim Ds Tablet) 1 Each Tablet, 1 EACH PO BID Prescribed by: RAIN FISHER on 05/29/22 1208 Review of Systems Review of Systems Constitutional: no symptoms reported EENTM: no symptoms reported Respiratory: no symptoms reported Cardiovascular: no symptoms reported Gastrointestinal: no symptoms reported Genitourinary: no symptoms reported Skin: see HPI Psychiatric/Neurological: No Symptoms Reported Hematologic/Lymphatic: No Symptoms Reported Past Kkanbyx-Jvdkqp-Txmhpv Hx Patient Social History Tobacco Use?: No Use of E-Cig and/or Vaping dev: No Substance use?: No Alcohol Use?: No Pt feels they are or have been: No Immunizations Up To Date Tetanus Booster (TDap): Unknown First/Initial COVID19 Vaccinat: NOVEMBER 2020 Second COVID19 Vaccination Aftab: DECEMBER 2020 Third COVID19 Vaccination Date: NOVEMBER 2020 Seasonal Allergies Seasonal Allergies: No Past Medical History Surgeries: Yes (Prosthetic right EYE, cranial surgery) Respiratory: No Cardiac: Yes High Cholesterol, Hypertension Neurological: Yes Seizure Disorder, Stroke, Traumatic Brain Injury Genitourinary: No Gastrointestinal: No Musculoskeletal: No Endocrine: No HEENT: Yes (Prosthetic right eye) Eye Injury Loss of Vision: Right Cancer: No Psychosocial: No Integumentary: No Family Medical History No Pertinent Family Hx Physical Exam Vital Signs Vital Signs - First Documented 05/29/22 08:31 Temp 36.4 Pulse 63 Resp 16 B/P (MAP) 162/95 (117) Pulse Ox 97 O2 Delivery Room Air Capillary Refill : Less Than 3 Seconds Height, Weight, BMI Height: '" Weight: lbs. oz. kg; 33.00 BMI Method:Stated General Appearance: No Apparent Distress, WD/WN HEENT: Normal ENT Inspection Respiratory: No Respiratory Distress Neurologic/Psychiatric: Alert, Oriented x3, No Motor/Sensory Deficits, Normal Mood/Affect Skin: Warm/Dry, Other (Large fluctuant blister about 4 cm in diameter on the plantar surface of the left heel with some tenderness. No significant inflammatory response.) Procedures/Interventions I&D : Blade Size: 11 Progress Skin was scrubbed with alcohol. A 1 cm incision was made over the center of the blister where the puncture-like wound was evident. A serous see fluid with chunky purulent material was expressed from the wound. Culture was obtained. An IV catheter needle was used to irrigate the blister with saline and chlorhexidine. Blister was left intact to protect the raw skin underneath. A doughnut type dressing was applied using rolled gauze. Patient felt immediate relief after the procedure. Suture Size: 4-0 Progress/Results/Core Measures Suspected Sepsis SIRS Temperature: Pulse: 63 Respiratory Rate: 16 Blood Pressure 162 /95 Mean: 117 Results/Orders My Orders Orders - RAIN LEWIS MD Wound Culture (05/29/22 13:19) Vital Signs/I&O 05/29/22 05/29/22 08:31 12:15 Temp 36.4 Pulse 63 65 Resp 16 B/P (MAP) 162/95 (117) 173/95 Pulse Ox 97 97 O2 Delivery Room Air Room Air Capillary Refill : Less Than 3 Seconds Blood Pressure Mean: 117 Progress Note : Progress Note After discussion with Dr. Booth, incision was made over the center of the abscessed blister. Copious amounts of purulent drainage were expressed from the wound which was also irrigated with saline and chlorhexidine. A donut style dressing was applied to the wound and wrapped with Coban. Bactrim was added to the patient's antibiotic therapy. No foreign body was found inside the blistered abscess. See discharge instructions for further discussion. Departure Impression Primary Impression: Abscess of heel, left Additional Impressions: Encounter for incision and drainage procedure Puncture Disposition: HOME, SELF-CARE Condition: Improved Departure-Patient Inst. Decision time for Depature: 12:05 Referrals: KEILY LIVINGSTON MD (PCP/Family) Primary Care Physician Patient Instructions: Abscess Incision and Drainage ED Add. Discharge Instructions: Continue the Keflex (cephalexin) as previously prescribed. Add Bactrim as prescribed from the ER. Take 1 dose when you pick it up today and another this evening. Then take twice daily. Soak your foot in warm soapy water using the chlorhexidine soap provided in the ER 2 or 3 times a day for 20 to 30 minutes for the next few days. Otherwise keep your wound clean and dry. Keep covered until it dries up and the drainage stops. Do not submerge except for in the chlorhexidine soaks. You may shower as normal. Return to care if you have worsening symptoms, especially if you develop fever. Review wound culture results on or Saturday by calling your primary care provider. All discharge instructions reviewed with patient and/or family. Voiced understanding. Scripts Sulfamethoxazole/Trimethoprim (Bactrim Ds Tablet) 1 Each Tablet 1 EACH PO BID, #20 TAB Prov: RAIN LEWIS MD 05/29/22 Copy Copies To 1: KEILY LIVINGSTON MD, JOSHUA T MD May 29, 2022 12:08
[2022-05-29 12:15] VITALS: BP 173/95
== END 2022-05-29 12:15 | disposition home or self-care (01) ==
LOC: EDUNIT# 07:52 → ER 07:55
DX: S91.332A Puncture wound without foreign body, left foot, initial encounter (principal); L02.612 Cutaneous abscess of left foot; X58.XXXA Exposure to other specified factors, initial encounter
CPT/HCPCS: 10060; 87070; 87077; 87186; 87205

== ENCOUNTER 2022-10-29 14:59 | Emergency (ER) | payer MEDICARE ==
[~2022-10-29] VITALS: Ht 185.5 cm; Wt 115.6 kg
[~2022-10-29 14:59] MED LIST changes: +SULF1TAB38 PO
[2022-10-29 16:21] LABS: BASOPHILS % (AUTO) 1 % (0-10); EOSINOPHILS # (AUTO) 0.2 10^3/uL (0.0-0.3); EOSINOPHILS % (AUTO) 2 % (0-10); HEMATOCRIT 43 % (40-54); HEMOGLOBIN 14.7 g/dL (13.3-17.7); LYMPHOCYTES # (AUTO) 1.5 10^3/uL (1.0-4.0); LYMPHOCYTES % (AUTO) 18 % (12-44); MEAN CORPUSCULAR HEMOGLOBIN 28 pg (25-34); MEAN CORPUSCULAR HGB CONC 34 g/dL (32-36); MEAN CORPUSCULAR VOLUME 84 fL (80-99); MEAN PLATELET VOLUME 11.1 fL (9.0-12.2); MONOCYTES # (AUTO) 0.7 10^3/uL (0.0-1.0); MONOCYTES % (AUTO) 9 % (0-12); NEUTROPHILS # (AUTO) 5.8 10^3/uL (1.8-7.8); NEUTROPHILS % (AUTO) 71 % (42-75); PLATELET COUNT 172 10^3/uL (130-400); WHITE BLOOD COUNT 8.2 10^3/uL (4.3-11.0)
--- NOTE | 2022-10-29 16:21 | ED General ---
General Chief Complaint: Dizziness/Syncope Stated Complaint: LIGHTHEADED | Nursing Triage Note: PT AMB TO RM 2 WITH WITH COMPLAINT OF LIGHT HEADED/ DIZZY, CONFUSION, AND NOT FEELING RIGHT. STATES SYMPTOMS STARTED THIS MORNING. Source of Information: Patient, Caregiver Exam Limitations: No Limitations History of Present Illness Date Seen by Provider: Oct 29, 2022 Time Seen by Provider: 16:06 Initial Comments 67-year-old male presents with complaints of disorientation that started after lunch around noon. Reports some lightheadedness with this, states that has improved. reports that patient asked why their son was at home and was not at work, states that their son has been out of work for 6 months. He had a stroke approximately a year ago. Denies fevers, cough, chest pain, shortness of air, abdominal pain, nausea, vomiting, diarrhea. 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 States he only takes it every other day due to extreme fatigue when taking more frequently. states he has not had a seizure in many years since being on the Tegretol. Denies any seizure-like activity today. He also takes Xarelto, but has been out for the last 3 days. He is currently still taking his aspirin. Allergies and Home Medications Allergies Coded Allergies: Penicillins (Verified Allergy, Unknown, 08/31/21) Patient Home Medication List Home Medication List Reviewed: Yes Albuterol Sulfate (Albuterol Sulfate) 2.5 Mg/3 Ml Vial.neb, 2.5 MG INH RTQ2H PRN for SHORTNESS OF BREATH Prescribed by: JOHN CRUZ on 02/22/21 1111 Amlodipine Besylate (Amlodipine Besylate) 10 Mg Tablet, 10 MG PO DAILY Prescribed by: JOHN CRUZ on 02/22/21 1111 Aspirin (Aspirin EC) 81 Mg Tablet.dr, 81 MG PO DAILY Prescribed by: JOHN CRUZ on 02/22/21 1111 Atorvastatin Calcium (Atorvastatin Calcium) 80 Mg Tablet, 80 MG PO HS Prescribed by: JOHN CRUZ on 02/22/21 1111 Carbamazepine (Carbamazepine) 200 Mg Tablet, 200 MG PO Q48H AT 1800, (Reported) Entered as Reported by: KACI MONTGOMERY on 02/20/21 1619 Cephalexin (Cephalexin) 500 Mg Tablet, 500 MG PO QID Prescribed by: GINNY YEUNG on 08/31/21 1220 Cetirizine HCl (Cetirizine HCl) 10 Mg Tablet, 10 MG PO DAILY, (Reported) Entered as Reported by: KACI MONTGOMERY on 02/20/21 1619 Doxazosin Mesylate (Doxazosin Mesylate) 4 Mg Tablet, 2 MG PO TID Prescribed by: JOHN CRUZ on 02/22/21 1111 Gabapentin (Neurontin) 300 Mg Capsule, 300-600 MG PO HS, (Reported) Entered as Reported by: KACI MONTGOMERY on 02/20/21 1619 Hydralazine HCl (Hydralazine HCl) 25 Mg Tablet, 50 MG PO TID Prescribed by: JOHN CRUZ on 02/22/21 1111 Hydrocodone/Acetaminophen (Hydrocodone-Acetamin 7.5-325) 1 Each Tablet, 1 EACH PO BID PRN for PAIN-MODERATE (5-7), (Reported) Entered as Reported by: KACI MONTGOMERY on 02/20/21 161 Metoprolol Tartrate (Metoprolol Tartrate) 25 Mg Tablet, 25 MG PO BID, (Reported) Entered as Reported by: KACI MONTGOMERY on 02/20/21 161 Nicotine (Nicoderm Cq) 1 Each Patch.td24, 21 MG TD DAILY@0900 Prescribed by: JOHN CRUZ on 02/22/21 1111 Sulfamethoxazole/Trimethoprim (Bactrim Ds Tablet) 1 Each Tablet, 1 EACH PO BID Prescribed by: RAIN FISHER on 05/29/22 1208 Review of Systems Review of Systems Constitutional: see HPI Past Ohrefjm-Xyrjsc-Lkofrs Hx Patient Social History Tobacco Use?: No Use of E-Cig and/or Vaping dev: No Substance use?: Yes Substance type: Marijuana Alcohol Use?: No Pt feels they are or have been: No Immunizations Up To Date Tetanus Booster (TDap): Unknown First/Initial COVID19 Vaccinat: NOVEMBER 2020 Second COVID19 Vaccination Aftab: DECEMBER 2020 Third COVID19 Vaccination Date: NOVEMBER 2020 Seasonal Allergies Seasonal Allergies: No Past Medical History Surgeries: Yes (Prosthetic right EYE, cranial surgery) Respiratory: No Cardiac: Yes High Cholesterol, Hypertension Neurological: Yes Seizure Disorder, Stroke, Traumatic Brain Injury Genitourinary: No Gastrointestinal: No Musculoskeletal: No Endocrine: No HEENT: Yes (Prosthetic right eye) Eye Injury Loss of Vision: Right Cancer: No Psychosocial: No Integumentary: No Family Medical History No Pertinent Family Hx Physical Exam Vital Signs Vital Signs - First Documented 10/29/22 15:18 Temp 36.2 Pulse 84 Resp 16 B/P (MAP) 141/89 (106) Pulse Ox 97 O2 Delivery Room Air Capillary Refill : Less Than 3 Seconds Height, Weight, BMI Height: '" Weight: lbs. oz. kg; 33.00 BMI Method:Stated General Appearance: No Apparent Distress, WD/WN HEENT: PERRL/EOMI, TM Abnormal (L) (Cerumen), TM Abnormal (R) (Cerumen), Other (Right eye as a glass eye) Neck: Normal Inspection, Supple Respiratory: Lungs Clear, Normal Breath Sounds, No Accessory Muscle Use, No Respiratory Distress Cardiovascular: Regular Rate, Rhythm, No Edema, No Gallop, No JVD, No Murmur Extremity: Normal Inspection, Normal Range of Motion Neurologic/Psychiatric: Alert, Oriented x3, No Motor/Sensory Deficits, Normal Mood/Affect, protection consultant II-XII Norm as Tested, Other (Finger-nose normal) Skin: Normal Color, Warm/Dry Procedures/Interventions Suture Size: 4-0 Progress/Results/Core Measures Suspected Sepsis SIRS Temperature: Pulse: 84 Respiratory Rate: 16 Laboratory Tests 10/29/22 15:54: White Blood Count 8.2 Blood Pressure 141 /89 Mean: 106 Laboratory Tests 10/29/22 15:54: Creatinine 0.98, INR Comment 1.0, Platelet Count 172, Total Bilirubin 0.4 Results/Orders Lab Results Laboratory Tests Test 10/29/22 15:54 10/29/22 16:38 Range/Units White Blood Count 8.2 4.3-11.0 10^3/uL Red Blood Count 5.18 4.30-5.52 10^6/uL Hemoglobin 14.7 13.3-17.7 g/dL Hematocrit 43 40-54 % Mean Corpuscular Volume 84 80-99 fL Mean Corpuscular Hemoglobin 28 25-34 pg Mean Corpuscular Hemoglobin Concent 34 32-36 g/dL Red Cell Distribution Width 12.8 10.0-14.5 % Platelet Count 172 130-400 10^3/uL Mean Platelet Volume 11.1 9.0-12.2 fL Immature Granulocyte % (Auto) 0 % Neutrophils (%) (Auto) 71 42-75 % Lymphocytes (%) (Auto) 18 12-44 % Monocytes (%) (Auto) 9 0-12 % Eosinophils (%) (Auto) 2 0-10 % Basophils (%) (Auto) 1 0-10 % Neutrophils # (Auto) 5.8 1.8-7.8 10^3/uL Lymphocytes # (Auto) 1.5 1.0-4.0 10^3/uL Monocytes # (Auto) 0.7 0.0-1.0 10^3/uL Eosinophils # (Auto) 0.2 0.0-0.3 10^3/uL Basophils # (Auto) 0.0 0.0-0.1 10^3/uL Immature Granulocyte # (Auto) 0.0 0.0-0.1 10^3/uL Prothrombin Time 13.3 12.2-14.7 SEC INR Comment 1.0 0.8-1.4 Activated Partial Thromboplast Time 29 24-35 SEC Sodium Level 140 135-145 MMOL/L Potassium Level 4.2 3.6-5.0 MMOL/L Chloride Level 110 H 98-107 MMOL/L Carbon Dioxide Level 20 L 21-32 MMOL/L Anion Gap 10 5-14 MMOL/L Blood Urea Nitrogen 18 7-18 MG/DL Creatinine 0.98 0.60-1.30 MG/DL Estimat Glomerular Filtration Rate 85 BUN/Creatinine Ratio 18 Glucose Level 102 70-105 MG/DL Calcium Level 8.8 8.5-10.1 MG/DL Corrected Calcium 8.6 8.5-10.1 MG/DL Total Bilirubin 0.4 0.1-1.0 MG/DL Aspartate Amino Transf (AST/SGOT) 24 5-34 U/L Alanine Aminotransferase (ALT/SGPT) 34 0-55 U/L Alkaline Phosphatase 73 40-136 U/L Troponin I < 0.028 <0.028 NG/ML Total Protein 7.6 6.4-8.2 GM/DL Albumin 4.3 3.2-4.5 GM/DL Carbamazepine (Tegretol) Level < 2.0 L 4.0-12.0 UG/ML Urine Color ORANGE Urine Clarity CLOUDY Urine pH 6.0 5-9 Urine Specific [place] 1.025 H 1.016-1.022 Urine Protein TRACE H NEGATIVE Urine Glucose (UA) NEGATIVE NEGATIVE Urine Ketones TRACE H NEGATIVE Urine Nitrite NEGATIVE NEGATIVE Urine Bilirubin NEGATIVE NEGATIVE Urine Urobilinogen 1.0 < = 1.0 MG/DL Urine Leukocyte Esterase NEGATIVE NEGATIVE Urine RBC (Auto) NEGATIVE NEGATIVE Urine RBC NONE /HPF Urine WBC NONE /HPF Urine Squamous Epithelial Cells NONE /HPF Urine Crystals NONE /LPF Urine Bacteria NEGATIVE /HPF Urine Casts NONE /LPF Urine Mucus MODERATE H /LPF Urine Culture Indicated NO My Orders Orders - FRANCESCA SAHU APRN Carbamazepine (Tegretol) (10/29/22 16:11) Cbc With Automated Diff (10/29/22 16:11) Comprehensive Metabolic Panel (10/29/22 16:11) Protime With Inr (10/29/22 16:11) Partial Thromboplastin Time (10/29/22 16:11) Troponin I [place] (10/29/22 16:11) Ct Head Wo (10/29/22 16:11) Ua Culture If Indicated (10/29/22 16:11) Chest 1 View, Ap/Pa Only (10/29/22 16:11) Ed Iv/Invasive Line Start (10/29/22 17:19) Vital Signs/I&O 10/29/22 10/29/22 15:18 17:56 Temp 36.2 Pulse 84 Resp 16 16 B/P (MAP) 141/89 (106) 162/99 Pulse Ox 97 97 O2 Delivery Room Air Room Air Capillary Refill : Less Than 3 Seconds Blood Pressure Mean: 106 Progress Note #1: Time: 16:20 Progress Note Patient seen and evaluated, resting comfortably, no acute distress. Based on exam and symptoms, concern for infection, UTI, pneumonia, stroke, TIA. Work-up initiated including CBC, CMP, coags, troponin, UA, chest x-ray, CT head. Progress Note #2: Time: 17:28 Progress Note Labs, CT, x-ray reviewed. CBC grossly normal, WBC 8.7, Hbg 14.7, Hct 43. CMP shows elevated chloride 110, CO2 slightly decreased 20, Potassium 4.2, BUN 18, GFR 85, glucose 102. Troponin negative. Coags normal. UA shows elevated specific gravity of 1.025, trace ketones, negative nitrites, negative leukocytes, negative bacteria. Carbenzapine level low at < 2.0. IV fluid ordered for possible dehydration. Discussed results with patient. He would rather go home and drink water and then stay and get the IV fluids. Discharge instructions and return precautions provided. Diagnostic Imaging Diagonstic Imaging: CT Plain Films/CT/US/NM/MRI: head Comments [facility] [place], [place] NAME: AISSATOU NAVARRO [facility] REC#: [id number] PT STATUS: REG ER : 1955 PHYSICIAN: FRANCESCA SAHU APRN ADMIT DATE: 10/29/22/ER Signed Date of Exam:10/29/22 CT HEAD WO PROCEDURE: CT head without contrast. TECHNIQUE: Multiple contiguous axial images were obtained through the brain without the use of intravenous contrast. Auto Exposure Controls were utilized during the CT exam to meet ALARA standards for radiation dose reduction. INDICATION: Altered mental status. COMPARISON: 02/21/2021. FINDINGS: No intracranial hyperdense hemorrhage or space-occupying mass. No hydrocephalus. Large area of cystic encephalomalacia in the right frontotemporal region is unchanged. Small area of encephalomalacia in the right parietal lobe is also unchanged. Reynolds-white matter differentiation is otherwise preserved. No acute calvarial abnormality. 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 Post-traumatic deformity of the right orbital wall is again noted. Right frontotemporal craniectomy with prosthesis implant. IMPRESSION: 1. No acute intracranial process. 2. Unchanged large region of encephalomalacia in the right frontotemporal region with overlying changes of craniectomy. Dictated by: Dictated on workstation # [id number] Dict: 10/29/22 1637 Trans: 10/29/22 1728 [id number] Interpreted by: YENNY BUCHANAN MD Electronically signed by: YENNY BUCHANAN MD 10/29/22 1728 Diagonstic Imaging: Xray Plain Films/CT/US/NM/MRI: chest [facility] [place] [place] NAME: AISSATOU NAVARRO [facility] REC#: [id number] PT STATUS: REG ER : 1955 PHYSICIAN: FRANCESCA SAHU APRN ADMIT DATE: 10/29/22/ER Signed Date of Exam:10/29/22 CHEST 1 VIEW, AP/PA ONLY CHEST 1 VIEW, AP/PA ONLY Indication: Altered mental status Comparison: 02/20/2021 Findings: No focal airspace disease in the visualized lungs. No pleural effusion or pneumothorax. Normal cardiomediastinal silhouette. Impression: 1. No acute cardiopulmonary process by portable radiography. Dictated by: Dictated on workstation # [id number] Dict: 10/29/22 1635 Trans: 10/29/22 1636 [facility] [id number] Interpreted by: YENNY BUCHANAN MD Electronically signed by: YENNY BUCHANAN MD 10/29/22 1636 Departure Impression Primary Impression: Confusion Disposition: 01 HOME, SELF-CARE Condition: Stable Departure-Patient Inst. Decision time for Depature: 17:29 Referrals: KEILY LIVINGSTON MD (PCP/Family) Primary Care Physician Patient Instructions: Altered Mental Status Add. Discharge Instructions: Increase your water intake. Follow-up with your primary care provider. Return if you develop one-sided weakness, increased confusion, difficulty walking, or any other new, concerning, or worsening symptoms. All discharge instructions reviewed with patient and/or family. Voiced understanding. FRANCESCA SAHU APRN Oct 29, 2022 16:21
[2022-10-29 16:22] LABS: ALBUMIN 4.3 GM/DL (3.2-4.5)
[2022-10-29 16:23] LABS: CHLORIDE 110 MMOL/L (98-107); POTASSIUM 4.2 MMOL/L (3.6-5.0); SODIUM 140 MMOL/L (135-145)
[2022-10-29 16:24] LABS: CALCIUM 8.8 MG/DL (8.5-10.1)
[2022-10-29 16:25] LABS: GLUCOSE 102 MG/DL (70-105); TOTAL PROTEIN 7.6 GM/DL (6.4-8.2)
[2022-10-29 16:26] LABS: CARBON DIOXIDE 20 MMOL/L (21-32)
[2022-10-29 16:27] LABS: BILIRUBIN,TOTAL 0.4 MG/DL (0.1-1.0)
[2022-10-29 16:28] LABS: ALKALINE PHOSPHATASE 73 U/L (40-136)
[2022-10-29 16:29] LABS: CREATININE SERUM 0.98 MG/DL (0.60-1.30); GFR ESTIMATED 85
[2022-10-29 16:30] LABS: BUN/CREATININE RATIO 18; PROTHROMBIN TIME PATIENT 13.3 SEC (12.2-14.7)
[2022-10-29 16:32] LABS: ALANINE AMINOTRANSFERASE 34 U/L (0-55)
[2022-10-29 16:38] LABS: CARBAMAZEPINE (TEGRETOL) < 2.0 UG/ML (4.0-12.0)
--- NOTE | 2022-10-29 16:38 | Diagnostic Imaging Report ---
CHEST 1 VIEW, AP/PA ONLY Indication: Altered mental status Comparison: 02/20/2021 Findings: No focal airspace disease in the visualized lungs. No pleural effusion or pneumothorax. Normal cardiomediastinal silhouette. Impression: 1. No acute cardiopulmonary process by portable radiography. Dictated by: Dictated on workstation # [id number]
--- NOTE | 2022-10-29 16:41 | Diagnostic Imaging Report ---
PROCEDURE: CT head without contrast. TECHNIQUE: Multiple contiguous axial images were obtained through the brain without the use of intravenous contrast. Auto Exposure Controls were utilized during the CT exam to meet ALARA standards for radiation dose reduction. INDICATION: Altered mental status. COMPARISON: 02/21/2021. FINDINGS: No intracranial hyperdense hemorrhage or space-occupying mass. No hydrocephalus. Large area of cystic encephalomalacia in the right frontotemporal region is unchanged. Small area of encephalomalacia in the right parietal lobe is also unchanged. Reynolds-white matter differentiation is otherwise preserved. No acute calvarial abnormality. 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 Post-traumatic deformity of the right orbital wall is again noted. Right frontotemporal craniectomy with prosthesis implant. IMPRESSION: 1. No acute intracranial process. 2. Unchanged large region of encephalomalacia in the right frontotemporal region with overlying changes of craniectomy. Dictated by: Dictated on workstation # [id number]
[2022-10-29 16:43] LABS: BILIRUBIN,URINE NEGATIVE (NEGATIVE); CLARITY,URINE CLOUDY; COLOR,URINE ORANGE; GLUCOSE, URINE (UA) NEGATIVE (NEGATIVE); KETONES,URINE TRACE (NEGATIVE); LEUKOCYTE ESTERASE ,URINE NEGATIVE (NEGATIVE); NITRITE,URINE NEGATIVE (NEGATIVE); PROTEIN,URINE TRACE (NEGATIVE)
[2022-10-29 17:14] LABS: BACTERIA,URINE NEGATIVE /HPF
[2022-10-29] MEDS ORDERED: NS IV 1000 ML 1,000 ML IV SCH (17:30)
[2022-10-29 17:56] VITALS: BP 162/99
== END 2022-10-29 17:56 | disposition home or self-care (01) ==
LOC: EDUNIT# 14:59 → ER 15:01
DX: R41.0 Disorientation, unspecified (principal); E87.8 Other disorders of electrolyte and fluid balance, not elsewhere classified; R79.81 Abnormal blood-gas level; G40.909 Epilepsy, unspecified, not intractable, without status epilepticus; Z87.820 Personal history of traumatic brain injury; Z79.82 Long term (current) use of aspirin; Z79.899 Other long term (current) drug therapy
CPT/HCPCS: 36415; 70450; 71045; 80053; 80156; 81000; 84484; 85025; 85610; 85730

== ENCOUNTER → 2023-07-30 | Outpatient (CLI) | payer MEDICARE ==
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
== END ==
LOC: RAD 09:38
PROVIDERS: ATTEND Nurse Practitioner Family
DX: G93.89 Other specified disorders of brain (principal); G45.9 Transient cerebral ischemic attack, unspecified
CPT/HCPCS: 70551